=== PATIENT | female | born 1990 | race Caucasian/White ===

== ENCOUNTER 2020-04-03 09:12 | Emergency (ER) | payer BC, OTHER ==
--- OUTSIDE RECORDS SUMMARY | 2020-04-03 09:35 | XMS REPORT | Continuity of Care Document ---
:1990 Author Organization [facility] t Address [address] [place] [address] Care Team Providers Name Role Phone Singer REYES Attending Clinician Khushi PALM Attending Clinician Payers Payer Name Policy Type Policy Number Effective Date Expiration Date S ource Problems This patient has no known problems. Allergies, Adverse Reactions, Alerts Allergy Allergy Status Severity Reaction(s) Onset Inactive Treating Comm ents Source Name Type Date Date Clinician No Known DA Active [facility]17 [facility] [place] Medications This patient has no known medications. Procedures This patient has no known procedures. Encounters Start End Encounter Admission Attending Care Care Encounter Source Date/Time Date/Time Type Type Clinicians Facility Department ID 2020-04-03 2020-04-03 SLADE Long [id number] 07:30:00 08:41:00 Gumaro Pelayo [id number] [place] [id number] [place] [id number] 2019-10-27 2019-10-27 Office [place] [facility] [id number] 12:48:48 13:38:31 Visit Elyssa Pelayo [id number] [place] [id number] [facility] [id number] formerly [facility] 134 [facility] Results This patient has no known results.
--- OUTSIDE RECORDS SUMMARY | 2020-04-03 09:36 | XMS REPORT | Summary of Care ---
:1990 Author Organization [facility] - Health Address [address] [place], [place] [address] Care Team Providers Name Role Phone Yissel Leon Primary Care Provider Lashell Capone MD Consulting Physician Reason for Visit Reason Comments Chest Pain Auth/Cert Status Reason Specialty Diagnoses / Referred By Referred To Procedures Contact Contact Emergency Medicine [facility] Em ergency Dept [address] [place], [place] [id number] Fax: Encounter Details Date Type Department Care Team Description 04/03/2020 Emergency [facility]-Emergency Gumaro Augustin DO Shortness of breath (Primary Dx); Department [address] [place] [address]. [address] [address] [place], [place] [id number] Allergies No Known Allergiesdocumented as of this encounter (statuses as of 04/03/2020) Medications Medication Sig Dispensed Refills Start Date End Date Status ibuprofen 600 mg Take 1 tablet by 20 tablet 1 02/18/2019 Active tabletIndications: mouth every 6 Encounter for (six) hours as induction of labor needed for Pain (scale 4-6). vitamin w/FA Take 1 tablet by 100 tablet 3 02/18/2019 Active tabletIndications: mouth daily. Liveborn , of deras , born in hospital by vaginal delivery acetaminophen-codeine Take 1 tablet by 30 tablet 0 04/13/2019 Active (TYLENOL-CODEINE #3) mouth every 4 300-30 mg (four) hours as tabletIndications: needed for Pain Buttock pain (scale 1-3). documented as of this encounter (statuses as of 04/03/2020) Active Problems Problem Noted Date Pre-operative evaluation for tubal ligation 04/10/2019 Multiparity 09/23/2018 Urinary incontinence, unspecified type 09/23/2018 documented as of this encounter (statuses as of 04/03/2020) Resolved Problems Problem Noted Date Resolved Date Routine follow-up 03/20/2019 03/20/2019 Tubal ligation status 03/20/2019 03/20/2019 Encounter for induction of labor 02/17/2019 020 Liveborn infant, of deras , born in hospital by 02/17/2019 03/20/2019 vaginal delivery 39 weeks gestation of 02/14/2019 03/20/19 20 Obesity affecting in second trimester 08/26/2018 02/17/2019 Tubal ligation evaluation 08/26/2018 04/10/2019 High-risk in third trimester 06/29/2018 0 03/20/2019 Previous child with Down syndrome in first trimester, 201803/21/2019 antepartum Obesity (BMI 30-39.9) 06/29/2018 03/20/2019 Thrombocytopenia affecting , antepartum 06/29/2018 03/20/2019 S/P cholecystectomy 06/29/2018 02/17/2019 Nausea and vomiting during prior to 22 weeks 06/2902/14/2019 gestation Trichomonal vulvovaginitis 05/09/2014 06/29/2018 Chlamydia trachomatis infection of lower genitourinary sites 05/04/2014 06/29/2018 Encounter for routine gynecological examination 05/03/2014 06/29/2018 Overview: ICD10 Diagnosis Term Commissions Manager Utility Family planning, IUD (intrauterine device) removal 5 06/29/2018 Screening for STD (sexually transmitted disease) 05/03/2014 06/29/2018 Obesity 05/03/2014 06/29/2018 Overview: ICD10 Diagnosis Term Commissions Manager Utility Abnormal uterine bleeding 10/12/2012 05/03/2014 Tobacco use disorder 10/12/2012 06/29/2018 anemia 10/31/2010 10/12/2012 Overview: ICD10 Diagnosis Term Commissions Manager Utility Thrombocytopenia 10/31/2010 10/12/[address] 10/31/2010 10/12/2012 Status post induction of labor 10/30/2010 Overview: History of 4 hour delivery ICD10 Diagnosis Term Commissions Manager Utility Obstetrical laceration 10/30/2010 10/12/2012 Overview: periurethral Normal spontaneous vaginal delivery 10/30/201009/14 documented as of this encounter (statuses as of 04/03/2020) Immunizations Name Administration Dates Next Due Rubella 03/25/2010 TDAP 03/15/2011 TDAP (ADACEL) VACCINE 12/22/2018 12/22/2018 documented as of this encounter Social History Tobacco Use Types Packs/Day Years Used Date Former Smoker Cigarettes 0 Quit: 06/30/19 Smokeless Tobacco: Never Used Alcohol Use Drinks/Week oz/Week Comments No Sex Assigned at Date Recorded Not on file COVID-19 Exposure Response Date Recorded In the last month, have you been in contact with No / Unsure 04/03/2020 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 documented as of this encounter Last Filed Vital Signs Vital Sign Reading Time Taken Comments Blood Pressure 126/102 04/03/2020 7:31 AM SEAT COVER CUTTER Pulse 102 04/03/2020 7:31 AM SEAT COVER CUTTER Temperature 36.6 C (97.8 F) 04/03/2020 7:31 AM SEAT COVER CUTTER Respiratory Rate 28 04/03/2020 7:31 AM SEAT COVER CUTTER Oxygen Saturation 98% 04/03/2020 7:31 AM SEAT COVER CUTTER Inhaled Oxygen Concentration - - Weight 90.7 kg (200 lb) 04/03/2020 7:31 AM SEAT COVER CUTTER Height - - Body Mass Index 31.32 10/27/2019 1:24 PM CDT documented in this encounter ED Notes Keke Mosquera RN - 04/03/2020 7:29 AM CSTPatient c/o chest pain that started while sleeping. Patient uncooperative with answering questions. Patient hyperventilating. Encourage to take slow deep breaths. documented in this encounter Miscellaneous Notes ED Nurse Note - Tracey Hines RN - 04/03/2020 8:14 AM CSTRe-educated patient on why physician ordered blood work and covid swab and how those specimens are obtained. When RN attempted to obtain covid swab patient grabbed RN's arm. RN advised patient to let go of arm and that it is inappropriate to place her hands on medical staff. She then began to berate and curse staff. She refused blood work and covid swab. She is calling ride to come get her. She is alert, oriented x4 but is refusing further testing. She ambulated out of the ED with no gait disturbances. She did not sign AMA paper. D Nurse Note - Tracey Hines RN - 04/03/2020 7:40 AM CSTPhysician attempting to assess patient. She is uncooperative in answering questions. Physician explaining the importance of participating in assessment. Pt remains unreceptive and refuses to participate. documented in this encounter Plan of Treatment Date Type Specialty Care Team Description 10/28/2020 Office Visit Obstetrics & Gynecology Elyssa Puri PA-C [address] [place] [address] [phone] Name Type Priority Associated Diagnoses Order S chedule CBC WITH DIFF LAB Routine Shortness of breath ONCE fo r 1 Occurrences starting 2020 until 1 COMP. METABOLIC PANEL LAB Routine Shortness of breath ONCE for 1 Occurrences (98953) starting 2020 until 1 URINALYSIS LAB Routine Shortness of breath ONCE for 1 Occurrences starting 2020 until 1 ADC / LCC - DRUG SCREEN LAB Routine Shortness of ayden th ONCE for 1 Occurrences TRIAGE starting 2020 until 1 COVID-19 (ID NOW RAPID LAB Routine Shortness of breat h ONCE for 1 Occurrences TESTING) starting 2020 until 1 ETHANOL LAB Routine Confusion ONCE for 1 Occu rrences starting 2020 until 1 ACETAMINOPHEN LAB Routine Confusion ONCE for 1 Occ urrences starting 2020 until 1 SALICYLATE LAB Routine Confusion ONCE for 1 Occu rrences starting 2020 until 1 Health Maintenance Due Date Last Done Comments PNEUMOCOCCAL 0-64 YEARS COMBINED 07/27/1995 SERIES (1 of 3 - PCV13) INFLUENZA VACCINE (#1) 2019 Depression Screening 04/18/2020 04/18/2019 PAP SMEAR 10/26/2022 10/27/2019, 03/04/2017, 05/02/2014, Additional history exists DTaP,Tdap,and Td Vaccines (3 - Td) 12/22/2028 12/22/2018, 0 03/15/2011 documented as of this encounter Results Not on filedocumented in this encounter Visit Diagnoses Diagnosis Shortness of breath - Primary Confusion Unspecified psychosis documented in this encounter Additional Health Concerns Infection Onset Date Last Indicated Resolved Time COVID-19 Rule Out 04/03/2020 04/03/2020 documented as of this encounter Insurance Payer Benefit Plan / Subscriber ID Effective Phone Address [facility] [id number] 2018-[place] [address] [employer] HEALTH CHOICE - [place] [id number] 1 MANAGED MEDICAID [place], [place] [phone] documented as of this encounter Advance Directives Name Relationship Healthcare Agent Communication Relationship Brittany Cedric Mother Health Care Agent
[2020-04-03] MEDS ORDERED: dexAMETHasone 10 MG/ML VIAL ONE (10:13)
[2020-04-03] MEDS ORDERED: LEVALBUTEROL 1.25 MG/3 ML NEB ONE (10:13)
[2020-04-03 10:31] LABS: Absolute Lymphocytes (CBC) 2.3 K/uL (0.7-4.9); Basophils % 0.4 % (0-1.3); Hematocrit 39.7 % (36.0-45.0); Lymphocytes % 31.5 % (15.3-44.8); MPV 11.3 fL (7.6-11.3); RBC Red Blood Cell Count 4.44 M/uL (3.86-4.86)
[2020-04-03 11:33] LABS: Blood Morphology Comment NOT SEEN (NOT SEEN); Platelet Estimate ADEQ; Platelets, Giant FEW; White Blood Cell Scan OK (OK)
--- NOTE | 2020-04-03 11:40 | RAD REPORT ---
EXAM DESCRIPTION: Karen Single View04/03/2020 10:29 am CLINICAL HISTORY: Chest pain COMPARISON: 2013 FINDINGS: The lungs appear clear of acute infiltrate. The heart is normal size IMPRESSION: No acute abnormalities displayed
[2020-04-03 12:16] LABS: SARS-COV-2 RT PCR NEGATIVE (NEGATIVE)
--- NOTE | 2020-04-03 13:39 | ER ---
Nurse's Notes [facility] Name: Yolanda Steele Age: 29 yrs Sex: Female : 1990 Arrival Date: 04/03/2020 Time: 09:19 Bed 18 Private MD: Diagnosis: Acute bronchitis Presentation: 04/03 09:47 Chief complaint: Patient states: nonproductive coughing spell that started yesterday, em also reports chest pain this morning, denies fever. Coronavirus screen: cough unrelated to allergies, The client denies any previous COVID testing. Ebola Screen: Patient negative for fever greater than or equal to 101.5 degrees Fahrenheit, and additional compatible Ebola Virus Disease symptoms Patient denies exposure to infectious person. Patient denies travel to an Ebola-affected area in the 21 days before illness onset. No symptoms or risks identified at this time. Initial Sepsis Screen:. Risk Assessment: Do you want to hurt yourself or someone else? Patient reports no desire to harm self or others. Onset of symptoms was April 02, 2020. :47 Method Of Arrival: Ambulatory em :47 Acuity: AMBAR 3 em :47 Initial Sepsis Screen: Does the patient meet any 2 criteria? No. Patient's initial em sepsis screen is negative. Does the patient have a suspected source of infection? Yes: Productive cough/pneumonia. Historical: - Allergies: 10:06 No Known Allergies; em - PMHx: 09:48 GERD; em - PSHx: 09:48 Cholecystectomy; colon polyps removed; D \T\ C; em - Immunization history:: Adult Immunizations up to date. - Social history:: Smoking status: Patient denies any tobacco usage or history of. Screenin:06 Abuse screen: Denies threats or abuse. Nutritional screening: No deficits noted. em Tuberculosis screening: No symptoms or risk factors identified. Fall Risk None identified. Assessment: :47 General: Appears in no apparent distress. comfortable, Behavior is cooperative, em appropriate for age, anxious. Pain: Complains of pain in mid-sternal area Pain radiates to back Pain currently is 5 out of 10 on a pain scale. Pain began 1 day ago. Neuro: Level of Consciousness is awake, alert, obeys commands, Oriented to person, place, time, situation, Appropriate for age. Cardiovascular: Reports chest pain, Capillary refill < 3 seconds Patient's skin is warm and dry. Respiratory: Reports shortness of breath at rest cough that is non-productive, Airway is patent Respiratory effort is even, unlabored, Respiratory pattern is regular, symmetrical. GI: Patient currently denies nausea, vomiting. Derm: Skin is intact, is healthy with good turgor, Skin is pink, warm \T\ dry. Musculoskeletal: Capillary refill < 3 seconds, Range of motion: intact in all extremities. 10:30 Reassessment: Patient appears in no apparent distress at this time. Patient and/or em family updated on plan of care and expected duration. Pain level reassessed. Patient is alert, oriented x 3, equal unlabored respirations, skin warm/dry/pink. 11:53 Reassessment: Patient appears in no apparent distress at this time. Patient and/or em family updated on plan of care and expected duration. Pain level reassessed. Patient is alert, oriented x 3, equal unlabored respirations, skin warm/dry/pink. 12:10 Reassessment: Patient appears in no apparent distress at this time. Patient and/or em family updated on plan of care and expected duration. Pain level reassessed. Patient is alert, oriented x 3, equal unlabored respirations, skin warm/dry/pink. Vital Signs: 10:06 BP 112 / 73; Pulse 68; Resp 20; Temp 98.0(O); Pulse Ox 100% on R/A; Weight 94.8 kg; em Height 5 ft. 7 in. (170.18 cm); Pain 5/10; 11:03 BP 109 / 58; Pulse 70; Resp 18; Pulse Ox 98% on R/A; em 11:52 BP 100 / 55; Pulse 96; Resp 18; Pulse Ox 98% on R/A; em 13:57 BP 112 / 67; Pulse 65; Resp 16; Pulse Ox 99% on R/A; em 10:06 Body Mass Index 32.73 (94.80 kg, 170.18 cm) em ED Course: 09:19 Patient arrived in ED. mr 09:24 Cong Hernandez PA is PHCP. jmm 09:24 Michi Marcial MD is Attending Physician. jmm 09:40 Juan J Palm, KALEY is Primary Nurse. em 09:48 Triage completed. em 09:49 Arm band placed on. em 10:06 Patient has correct armband on for positive identification. Placed in gown. Bed in low em position. Call light in reach. Side rails up X2. Pulse ox on. NIBP on. 10:15 Initial lab(s) drawn, by me, sent to lab. Inserted saline lock: 20 gauge in right em antecubital area, using aseptic technique. Blood collected. Patient maintains SpO2 saturation greater than 95% on room air. 10:29 EKG done, by ED staff, reviewed by Cong POWERS. [facility] 10:30 Chest Single View XRAY In Process Unspecified. EDMS 13:53 No provider procedures requiring assistance completed. IV discontinued, intact, em bleeding controlled, No redness/swelling at site. Pressure dressing applied. Administered Medications: 10:05 Drug: Xopenex (3) 1.25 mg Route: Inhalation; em 10:30 Follow up: Response: No adverse reaction em 10:05 Drug: Decadron - Dexamethasone 10 mg Route: IVP; Site: right antecubital; em 10:30 Follow up: Response: No adverse reaction; Marked relief of symptoms em Outcome: 13:38 Discharge ordered by MD. ta 13:53 Discharged to home ambulatory. em 13:53 Condition: improved 13:53 Discharge instructions given to patient, Instructed on discharge instructions, follow up and referral plans. medication usage, Demonstrated understanding of instructions, follow-up care, medications, Prescriptions given X 2. 13:57 Patient left the ED. em Signatures: Dispatcher [employer] EDWV Cong Hernandez PA PA jmm GuzmánKrista Edgar, RN RN em Melani Kunz [facility] Corrections: (The following items were deleted from the chart) 10:07 09:48 Allergies: Methylprednisolone; em em
--- NOTE | 2020-04-03 13:39 | EDPHYS ---
Physician Documentation [facility] Name: Yolanda Steele Age: 29 yrs Sex: Female : 1990 Arrival Date: 04/03/2020 Time: 09:19 Bed 18 Private MD: ED Physician Michi Marcial HPI: 04/03 09:57 This 29 yrs old Female presents to ER via Ambulatory with complaints of Chest jmm Pain, Passed Out Prior To Arrival. 09:57 The patient or guardian reports cough. Onset: The symptoms/episode began/occurred jmm gradually. Modifying factors: The symptoms are alleviated by nothing. the symptoms are aggravated by nothing. Associated signs and symptoms: Pertinent negatives: fever. This is a 29 year old female with a history of GERD that presents to the ED with complaints of cough, shortness of breath, chest pain with cough beginning yesterday. Patient states she was being evaluated in the ED at [facility] and left after developing a nose bleed with nasal swab. . Historical: - Allergies: 10:06 No Known Allergies; em - PMHx: 09:48 GERD; em - PSHx: 09:48 Cholecystectomy; colon polyps removed; D \T\ C; em - Immunization history:: Adult Immunizations up to date. - Social history:: Smoking status: Patient denies any tobacco usage or history of. ROS: 09:57 Constitutional: Positive for body aches, chills. jmm 09:57 Respiratory: Positive for cough, shortness of breath, wheezing. 09:57 All other systems are negative. Exam: 09:57 Constitutional: This is a well developed, well nourished patient who is awake, alert, jmm and in no acute distress. Head/Face: atraumatic. Eyes: EOMI, no conjunctival erythema appreciated ENT: Moist Mucus Membranes Neck: Trachea midline, Supple Chest/axilla: Normal chest wall appearance and motion. 09:57 Abdomen/GI: Non distended, soft Back: Normal ROM Skin: General appearance color normal MS/ Extremity: Moves all extremities, no obvious deformities appreciated, no edema noted to the lower extremities Neuro: Awake and alert, normal gait Psych: Behavior is normal, Mood is normal, Patient is cooperative and pleasant 09:57 Cardiovascular: Rate: normal, Rhythm: regular. 09:57 Respiratory: the patient does not display signs of respiratory distress, Respirations: normal, Breath sounds: wheezing: that is moderate, is scattered. Vital Signs: 10:06 BP 112 / 73; Pulse 68; Resp 20; Temp 98.0(O); Pulse Ox 100% on R/A; Weight 94.8 kg; em Height 5 ft. 7 in. (170.18 cm); Pain 5/10; 11:03 BP 109 / 58; Pulse 70; Resp 18; Pulse Ox 98% on R/A; em 11:52 BP 100 / 55; Pulse 96; Resp 18; Pulse Ox 98% on R/A; em 13:57 BP 112 / 67; Pulse 65; Resp 16; Pulse Ox 99% on R/A; em 10:06 Body Mass Index 32.73 (94.80 kg, 170.18 cm) em MDM: 09:52 Patient medically screened. [facility] 13:36 Data reviewed: vital signs, nurses notes. Counseling: I had a detailed discussion with cely the patient and/or guardian regarding: the historical points, exam findings, and any diagnostic results supporting the discharge/admit diagnosis, lab results, radiology results, the need for outpatient follow up, to return to the emergency department if symptoms worsen or persist or if there are any questions or concerns that arise at home. ED course: Patient is alert and non toxic in appearance in the ED. No signs of resp distress. Patient is advised to follow up with pcp and otherwise given strict return precautions. Patient understood and agrees with the plan of care.. 04/03 09:54 Order name: CBC with Diff; Complete Time: 11:39 [facility] 04/03 09:54 Order name: Troponin I; Complete Time: 10:57 [facility] 04/03 09:54 Order name: D-Dimer; Complete Time: 11:10 [facility] 04/03 10:34 Order name: CBC Smear Scan; Complete Time: 11:39 EDMS 04/03 09:54 Order name: EKG - Nurse/Tech; Complete Time: 10:27 [facility] 04/03 09:54 Order name: Chest Single View XRAY; Complete Time: 11:43 [facility] 04/03 09:54 Order name: Saline Lock; Complete Time: 10:27 [facility] 04/03 12:16 Order name: COVID-19/FLU A+B; Complete Time: 12:23 EDMS Administered Medications: 10:05 Drug: Xopenex (3) 1.25 mg Route: Inhalation; em 10:30 Follow up: Response: No adverse reaction em 10:05 Drug: Decadron - Dexamethasone 10 mg Route: IVP; Site: right antecubital; em 10:30 Follow up: Response: No adverse reaction; Marked relief of symptoms em Disposition: 04/03/20 13:38 Discharged to Home. Impression: Acute bronchitis. - Condition is Stable. - Discharge Instructions: Acute Bronchitis, Adult. - Prescriptions for Albuterol Sulfate 90 mcg/actuation - inhale 1-2 puff by INHALATION route every 4-6 hours; 1 Inhaler. Prednisone 20 mg Oral Tablet - take 3 tablet by ORAL route once daily for 5 days; 15 tablet. - Medication Reconciliation Form, Thank You Letter, Antibiotic Education, Prescription Opioid Use form. - Follow up: Private Physician; When: 2 - 3 days; Reason: Recheck today's complaints, Continuance of care, Re-evaluation by your physician. Addendum: 04/06/2020 07:02 Co-signature as Attending Physician, Michi Marcial MD. r n Signatures: Dispatcher [employer] EDNE Cong Hernandez PA PA jmm Munoz, Edgar, RN RN Michi Marcial MD MD internet marketer: (The following items were deleted from the chart) 04/03 10:07 09:48 Allergies: Methylprednisolone; em em 11:25 09:55 CORONAVIRUS+MR.LAB.BRZ ordered. EDNE EDMS 11:25 09:55 Influenza Screen (A \T\ B)+BA.LAB.BRZ ordered. [facility] EDNE 13:57 13:38 04/03/2020 13:38 Discharged to Home. Impression: Acute bronchitis. Condition is em Stable. Forms are Medication Reconciliation Form, Thank You Letter, Antibiotic Education, Prescription Opioid Use. Follow up: Private Physician; When: 2 - 3 days; Reason: Recheck today's complaints, Continuance of care, Re-evaluation by your physician. cely
[2020-04-03 14:02] VITALS: TEMP 98
[2020-04-03 14:06] VITALS: BP 112/67; O2SAT 99
== END 2020-04-03 13:57 | disposition home or self-care (01) ==
LOC: ER 09:12
DX: J40 Bronchitis, not specified as acute or chronic (principal); Z20.822 Contact with and (suspected) exposure to COVID-19
CPT/HCPCS: 0240U; 36415; 71045; 84484; 85025; 85379; 93005; 96374; 99285; J1100

== ENCOUNTER 2021-08-12 08:26 | Emergency (ER) | payer OTHER ==
--- OUTSIDE RECORDS SUMMARY | 2021-08-12 08:29 | XMS REPORT | Continuity of Care Document ---
:1990 Author Organization [facility] t Address [address] [place] [address] Care Team Providers Name Role Phone KHUSHI Attending Clinician Unavailable Singer REYES Attending Clinician Khushi PALM Attending Clinician Payers Payer Name Policy Type Policy Number Effective Date Expiration Date [facility] [id number] 2018 [facility] MEDICAID 00:00:00 Problems This patient has no known problems. Allergies, Adverse Reactions, Alerts Allergy Allergy Status Severity Reaction(s) Onset Inactive Treating Comm ents Source Name Type Date Date Clinician No Known DA Active U [facility] [place] NO KNOWN Drug Active Univers ALLERGIE Class ity of [facility] Medications This patient has no known medications. Procedures This patient has no known procedures. Encounters Start End Encounter Admission Attending Care Care Encounter Source Date/Time Date/Time Type Type Clinicians Facility Department ID 2021-01-[address] [facility] [id number] [facility] 2020-10-29 Outpatient R KHUSHI [facility] [id number] 3P-20 Univers 08:30:00 08:30:00 ELYSSA [id number] [facility] 2020-10-29 2020-10-29 Outpatient R KHUSHI [facility] [id number] Univers 08:30:00 08:30:00 ELYSSA [facility] 2020-10-28 2020-10-28 Outpatient KHUSHI [facility] [id number] 3P-20 Univers 08:30:00 08:30:00 ELYSSA [id number] [facility] 2020-10-28 2020-10-28 Outpatient R KHUSHI [facility] [id number] Univers 08:30:00 08:30:00 ELYSSA [facility] 2020-07-09 2020-07-09 Outpatient KHUSHI [facility] [id number] 3P-20 Univers 08:30:00 08:30:00 ELYSSA [id number] [facility] 2020-07-09 2020-07-09 Outpatient R KHUSHI [facility] [id number] Univers 08:30:00 08:30:00 [facility] 2020-04-03 2020-04-03 [facility] [id number] 07:30:00 08:41:00 Gumaro Pelayo [id number] [place] [id number] [place] [id number] 2019-10-27 2019-10-27 [facility] [id number] 12:48:48 13:38:31 Visit Elyssa Pelayo [id number] [place] [id number] [facility] [phone] [address] 2019-10-27 2019-10-27 Outpatient R KHUSHI [facility] [id number] Univers 13:00:00 13:00:00 ELYSSA [facility] 2019-10-27 2019-10-27 Outpatient R KHUSHI [facility] [id number] 3P-20 Univers 13:00:00 13:00:00 ELYSSA [id number] [facility] Results This patient has no known results.
--- NOTE | 2021-08-12 10:00 | ER ---
Nurse's Notes [facility] Name: Yolanda Steele Age: 31 yrs Sex: Female : 1990 Arrival Date: 08/12/2021 Time: 08:35 Bed 11 Private MD: Osmar Holder S Diagnosis: Influenza due to identified novel influenza A virus Presentation: 08/12 08:47 Chief complaint: Patient states: throat hurts, fever, cough, aches, fever X 3 days, iw took home COVId test and was negative. Coronavirus screen: Client presents with at least one sign or symptom that may indicate coronavirus-19. Ebola Screen: Patient negative for fever greater than or equal to 101.5 degrees Fahrenheit, and additional compatible Ebola Virus Disease symptoms Patient denies exposure to infectious person. Patient denies travel to an Ebola-affected area in the 21 days before illness onset. No symptoms or risks identified at this time. Initial Sepsis Screen: Does the patient meet any 2 criteria? No. Patient's initial sepsis screen is negative. Does the patient have a suspected source of infection? No. Patient's initial sepsis screen is negative. Risk Assessment: Do you want to hurt yourself or someone else? Patient reports no desire to harm self or others. Onset of symptoms was August 09, 2021. 08:47 Method Of Arrival: Ambulatory iw 08:47 Acuity: AMBAR 4 Historical: - Allergies: 08:48 No Known Allergies; iw - Home Meds: 08:48 None [Active]; iw - PMHx: 08:48 GERD; iw Vital Signs: 08:57 BP 101 / 68; Pulse 88; Resp 16; Temp 98.1; Pulse Ox 95% on R/A; iw ED Course: 08:35 Patient arrived in ED. as 08:36 Osmar Holder MD is Private Physician. as 08:38 [facility] 7 08:38 Leoncio Stokes DO is Attending Physician. [facility] 08:47 Triage completed. iw 08:48 Arm band placed on. iw 09:02 Flu Sent. [facility] 09:30 [place] Leon, RN is Primary Nurse. iw Administered Medications: No medications were administered Outcome: 10:00 Discharge ordered by . [facility] 10:30 Patient left the ED. iw Signatures: Serina Kunz Irene, RN RN iw Melani Kunz mh5 Eufemia Connelly FNP JEWEL OLIVING MACHINE OPERATOR jh7 Corrections: (The following items were deleted from the chart) 09:00 08:57 Pulse 88bpm; Resp 16bpm; Temp 98.1F; iw iw
--- NOTE | 2021-08-12 10:00 | EDPHYS ---
Physician Documentation [facility] Name: Yolanda Steele Age: 31 yrs Sex: Female : 1990 Arrival Date: 08/12/2021 Time: 08:35 Bed 11 Private MD: Osmar Holder S ED Physician Leoncio Stokes HPI: 08/12 09:33 This 31 yrs old Female presents to ER via Ambulatory with complaints of Flu Symptoms. 7 09:33 Onset: The symptoms/episode began/occurred 4 day(s) ago. Associated signs and symptoms: jh7 Pertinent positives: cough, fever, headache, sore throat, wheezing, Pertinent negatives: abdominal pain, chest pain. Patient presents for flulike symptoms since Zachary evening. Patient states she was exposed to the flu. She also reports that she just took a home COVID test and that it was negative.. Historical: - Allergies: 08:48 No Known Allergies; iw - Home Meds: 08:48 None [Active]; iw - PMHx: 08:48 GERD; iw ROS: 09:33 Eyes: Negative for injury, pain, redness, and discharge, Cardiovascular: Negative for jh7 chest pain, palpitations, and edema, Back: Negative for injury and pain, Skin: Negative for injury, rash, and discoloration, Neuro: Negative for headache, weakness, numbness, tingling, and seizure. 09:33 Constitutional: Positive for body aches, fever, Negative for poor PO intake. 09:33 ENT: Positive for nasal discharge, sore throat. 09:33 Respiratory: Positive for cough, wheezing, Negative for shortness of breath. 09:33 Abdomen/GI: Positive for diarrhea, Negative for abdominal pain, nausea and vomiting. Exam: 09:33 Constitutional: This is a well developed, well nourished patient who is awake, alert, jh7 and in no acute distress. Neck: Trachea midline, no thyromegaly or masses palpated, and no cervical lymphadenopathy. Supple, full range of motion without nuchal rigidity, or vertebral point tenderness. Cardiovascular: Regular rate and rhythm with a normal S1 and S2. No gallops, murmurs, or rubs. Normal PMI, no JVD. No pulse deficits. Abdomen/GI: Soft, non-tender, with normal bowel sounds. No distension or tympany. No guarding or rebound. No evidence of tenderness throughout. Back: No spinal tenderness. No costovertebral tenderness. Full range of motion. Skin: Warm, dry with normal turgor. Normal color with no rashes, no lesions, and no evidence of cellulitis. Neuro: Awake and alert, GCS 15, oriented to person, place, time, and situation. Normal gait. 09:33 ENT: Nose: nasal drainage, and is seen coming from both nares, that is clear, post nasal drainage. 09:33 Respiratory: the patient does not display signs of respiratory distress, Respirations: normal, Breath sounds: wheezing: that is mild, is heard diffusely. Vital Signs: 08:57 BP 101 / 68; Pulse 88; Resp 16; Temp 98.1; Pulse Ox 95% on R/A; iw MDM: 09:10 Patient medically screened. [facility] 10:00 Differential diagnosis: viral Infection. Data reviewed: vital signs, nurses notes. Data [facility] interpreted: Pulse oximetry: is 95 %. Interpretation: normal. Counseling: I had a detailed discussion with the patient and/or guardian regarding: the historical points, exam findings, and any diagnostic results supporting the discharge/admit diagnosis, to return to the emergency department if symptoms worsen or persist or if there are any questions or concerns that arise at home. ED course: Patient was diagnosed with the flu. She was prescribed medication for cough and an inhaler to use as needed for shortness of breath/wheezing. She was advised to return to the ER if she developed any new concerning symptoms.. 08/12 08:54 Order name: Flu; Complete Time: 09:59 [facility] Administered Medications: No medications were administered Disposition: 21:59 Co-signature as Attending Physician, Leoncio Stokes DO I was immediately available on-site ms3 in the Emergency Department for consultation in the care of the patient. . Disposition Summary: 08/12/21 10:00 Discharge Ordered Location: Home [facility] Problem: new [facility] Symptoms: are unchanged [facility] Condition: Stable [facility] Diagnosis - Influenza due to identified novel influenza A virus [facility] Followup: [facility] - With: Private Physician - When: 2 - 3 days - Reason: Recheck today's complaints Discharge Instructions: - Discharge Summary Sheet [facility] Forms: - Medication Reconciliation Form [facility] - Thank You Letter [facility] - Antibiotic Education jh7 - Prescription Opioid Use 7 Prescriptions: - ProAir HFA 90 mcg/actuation Inhalation HFA aerosol inhaler - inhale 2 puff by INHALATION route every 4-6 hours; 1 Inhaler; Refills: 0, [facility] Product Selection Permitted - xcectrtyzreaegq-zligtntld-DC 2-30-10 mg/5 mL Oral syrup - take 10 milliliter by ORAL route every 4 hours As needed; 240 milliliter; [facility] Refills: 0, Product Selection Permitted Signatures: Dispatcher [employer] [place] Rojas, KALEY RN Leoncio Schuler, DO ms3 Eufemia Connelly, EGG CANDLER EGG CANDLER [facility]
[2021-08-12 10:46] VITALS: BP 101/68; TEMP 98.1; O2SAT 95
== END 2021-08-12 10:30 | disposition home or self-care (01) ==
LOC: ER 08:26
DX: J10.1 Influenza due to other identified influenza virus with other respiratory manifestations (principal)
CPT/HCPCS: 87804; 99282

== ENCOUNTER 2021-10-06 13:09 | Emergency (ER) | payer OTHER ==
--- OUTSIDE RECORDS SUMMARY | 2021-10-06 13:12 | XMS REPORT | Continuity of Care Document ---
:1990 Author Organization [facility] t Address [address] [place] [address] Care Team Providers Name Role Phone KHUSHI Attending Clinician Unavailable Singer REYES Attending Clinician Khushi PALM Attending Clinician Payers Payer Name Policy Type Policy Number Effective Date Expiration Date [facility] [id number] 2018 [facility] MEDICAID 00:00:00 Problems This patient has no known problems. Allergies, Adverse Reactions, Alerts Allergy Allergy Status Severity Reaction(s) Onset Inactive Treating Comm ents Source Name Type Date Date Clinician No Known DA Active U [facility] 11[facility] [place] NO KNOWN Drug Active Univers ALLERGIE Class ity of [facility] Medications This patient has no known medications. Procedures This patient has no known procedures. Encounters Start End Encounter Admission Attending Care Care Encounter Source Date/Time Date/Time Type Type Clinicians Facility Department ID 2021-01-11 Emergency [facility] [id number] [facility]-10[facility]29 Outpatient R KHUSHI [facility] [id number] 3P-20 Univers 08:30:00 08:30:00 ELYSSA [id number] [facility] 2020-10-29 2020-10-29 Outpatient R KHUSHI [facility] [id number] Univers 08:30:00 08:30:00 ELYSSA [facility] 2020-10-28 2020-10-28 Outpatient KHUSHI [facility] [id number] 3P-20 Univers 08:30:00 08:30:00 ELYSSA [id number] [facility] 2020-10-28 2020-10-28 Outpatient R KHUSHI [facility] [id number] Univers 08:30:00 08:30:00 ELYSSA [facility] 2020-07-09 2020-07-09 Outpatient KHUSHI [facility] [id number] 3P-20 Univers 08:30:00 08:30:00 ELYSSA [id number] [facility] 2020-07-09 2020-07-09 Outpatient R KHUSHI [facility] [id number] Univers 08:30:00 08:30:00 [facility] 2020-04-03 2020-04-03 [facility] [id number] 07:30:00 08:41:00 Gumaro Pelayo [id number] [place] [id number] [place] [id number] 2019-10-27 2019-10-27 Office [facility] [id number] 12:48:48 13:38:31 Visit Elyssa Pelayo [id number] [place] [id number] [facility] [id number] [address] 2019-10-27 2019-10-27 Outpatient R KHUSHI [facility] [id number] Univers 13:00:00 13:00:00 ELYSSA [facility] 2019-10-27 2019-10-27 Outpatient R KHUSHI [facility] [id number] 3P-20 Univers 13:00:00 13:00:00 ELYSSA [id number] [facility] Results This patient has no known results.
[2021-10-06 19:05] LABS: Absolute Lymphocytes (CBC) 0.5 K/uL (0.7-4.9); Hematocrit 37.1 % (36.0-45.0); Lymphocytes % 13.7 % (15.3-44.8); MCV 88.1 fL (80-100); MPV 11.4 fL (7.6-11.3); RBC Red Blood Cell Count 4.21 M/uL (3.86-4.86)
[2021-10-06 19:08] LABS: Protime INR 1.22
[2021-10-06 19:15] LABS: Potassium 3.1 mmol/L (3.5-5.1)
[2021-10-06 19:21] LABS: ALT/SGPT 30 U/L (12-78); AST/SGOT 12 U/L (15-37); Albumin 3.5 g/dL (3.4-5.0); Alkaline Phosphatase 60 U/L (45-117); Bilirubin Total 0.2 mg/dL (0.2-1.0); Creatine Phosphokinase 59 U/L (26-192); Lipase 131 U/L (73-393); Magnesium 1.8 mg/dL (1.8-2.4); Protein, Total 7.1 g/dL (6.4-8.2)
[2021-10-06] MEDS ORDERED: DIPHENHYDRAMINE 50 MG/ML VIAL ONE (19:33)
[2021-10-06] MEDS ORDERED: METOCLOPRAMIDE 10 MG/2mL INJ ONE (19:33)
[2021-10-06] MEDS ORDERED: KETOROLAC 30 MG/ML INJ ONE (19:34)
[2021-10-06] MEDS ORDERED: NA CHLORIDE 0.9% 1,000 ML ONE ×2 (19:34→21:36)
[2021-10-06 19:39] LABS: Bilirubin Direct < 0.1 mg/dL (0-0.2); CKMB Creatine Kinase MB < 1.0 ng/mL (1.0-3.6)
[2021-10-06 20:18] LABS: Urine Blood Trace-intact (Negative); Urine Glucose Negative (Negative); Urine Protein Negative (Negative)
[2021-10-06] MEDS ORDERED: POTASSIUM CL SA 10 MEQ TAB PO ONE (21:04)
[2021-10-06] MEDS ORDERED: MECLIZINE HCL 12.5 MG TAB ONE (21:35)
--- NOTE | 2021-10-06 23:11 | ER ---
Nurse's Notes [facility] Name: Yolanda Steele Age: 31 yrs Sex: Female : 1990 Arrival Date: 10/06/2021 Time: 13:11 Bed 11 Private MD: Diagnosis: Syncope Near;Viral infection, unspecified Presentation: 10/06 13:33 Chief complaint: Patient states: she started having pain all over her body in all of ap3 her joints this morning, fatigue and a headache. patient states she has been around someone who is sick. Coronavirus screen: Client presents with at least one sign or symptom that may indicate coronavirus-19. Ebola Screen: No symptoms or risks identified at this time. Initial Sepsis Screen: Does the patient meet any 2 criteria? HR > 90 bpm. Does the patient have a suspected source of infection? No. Patient's initial sepsis screen is negative. Risk Assessment: Do you want to hurt yourself or someone else? Patient reports no desire to harm self or others. Onset of symptoms was October 06, 2021 at 10:00. 13:33 Method Of Arrival: Wheelchair ap3 13:35 Acuity: AMBAR 4 ap3 Triage Assessment: 13:35 General: Appears uncomfortable, Behavior is calm, cooperative. General: Reports chills ap3 for feeling ill for fatigue for. Pain: Complains of pain in generalized body aches. Neuro: Level of Consciousness is awake, alert, obeys commands, Oriented to person, place, time, situation. Cardiovascular: Patient's skin is warm and dry. Respiratory: Reports cough that is Airway is patent Respiratory effort is even, unlabored. 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 - Social history:: Smoking status: Patient reports the use of cigarette tobacco products, smokes one-half pack cigarettes per day. Screenin:35 Abuse screen: Denies threats or abuse. Nutritional screening: No deficits noted. ap3 Tuberculosis screening: No symptoms or risk factors identified. 19:35 Fall Risk No fall in past 12 months (0 pts). No secondary diagnosis (0 pts). IV access ll3 (20 points). Ambulatory Aid- None/Bed Rest/Nurse Assist (0 pts). Gait- Normal/Bed Rest/Wheelchair (0 pts) Mental Status- Oriented to own ability (0 pts). Total Lester Fall Scale indicates No Risk (0-24 pts). Assessment: 16:00 Reassessment: Called from hong, unable to locate. jl7 17:00 Reassessment: Called from hong, unable to locate. jl 19:35 General: Appears uncomfortable, Behavior is calm, cooperative. Pain: Complains of pain ll3 in All over Pain currently is 8 out of 10 on a pain scale. Pain began This morning. Neuro: Level of Consciousness is awake, alert, obeys commands, Oriented to person, place, time, situation, Reports dizziness, headache. Respiratory: Respiratory effort is even, unlabored, Respiratory pattern is regular, symmetrical. GI: Patient currently denies nausea, vomiting. Derm: Skin is pink, warm \\T\\ dry. 21:33 Reassessment: No changes from previously documented assessment. Patient and/or family ll3 updated on plan of care and expected duration. Pain level reassessed. Patient is alert, oriented x 3, equal unlabored respirations, skin warm/dry/pink. 22:30 Reassessment: No changes from previously documented assessment. Patient and/or family ll3 updated on plan of care and expected duration. Pain level reassessed. Patient is alert, oriented x 3, equal unlabored respirations, skin warm/dry/pink. 23:58 Reassessment: No changes from previously documented assessment. Patient and/or family ll3 updated on plan of care and expected duration. Pain level reassessed. Patient is alert, oriented x 3, equal unlabored respirations, skin warm/dry/pink. Vital Signs: 13:33 Pulse 111; Resp 18; Temp 98.9; Pulse Ox 100% ; Weight 95.25 kg; Height 5 ft. 7 in. ap3 (170.18 cm); Pain 8/10; 13:35 BP 109 / 68; ap3 21:33 BP 94 / 68; Pulse 76; Resp 16; Pulse Ox 100% on R/A; ll3 22:30 BP 96 / 72; Pulse 72; Resp 16; Pulse Ox 99% on R/A; ll3 23:58 BP 99 / 66; Pulse 68; Resp 16; Pulse Ox 100% on R/A; ll3 13:33 Body Mass Index 32.89 (95.25 kg, 170.18 cm) ap3 ED Course: 13:11 Patient arrived in ED. rg4 13:35 Triage completed. ap3 13:36 Arm band placed on left wrist. ap3 14:00 Sherron Kimbrough FNP-C is PHCP. kb 14:00 Saji Collins MD is Attending Physician. kb 17:24 Saji Collins MD is Attending Physician. collins 17:58 Sherron Kimbrough FNP-C is PHCP. kb 18:47 Inserted saline lock: 22 gauge in left antecubital area, using aseptic technique. Blood zm collected. 18:48 CPK Sent. zm 18:48 Ckmb Sent. zm 18:48 Hepatic Function Sent. zm 18:48 Lipase Sent. zm 18:48 Magnesium Sent. zm 18:48 Protime (+inr) Sent. zm 18:48 Ptt, Activated Sent. zm 18:48 [place] Screen Profile Sent. zm 18:48 Basic Metabolic Panel Sent. zm 18:48 CBC with Diff Sent. zm 19:31 COVID-19 SARS RT PCR (Document "Date of Onset" if Symptomatic) Sent. zm 19:34 Michelle Ramirez, RN is Primary Nurse. ll3 19:35 Patient has correct armband on for positive identification. Bed in low position. Call 3 light in reach. Side rails up X 1. 10/07 00:19 No apparent distress. bh1 00:19 No provider procedures requiring assistance completed. IV discontinued, intact, bh1 bleeding controlled, No redness/swelling at site. Administered Medications: 10/06 19:35 Drug: NS 0.9% 1000 ml Route: IV; Rate: 1000 ml; Site: left antecubital; ll3 21:32 Follow up: Response: No adverse reaction; IV Status: Completed infusion; IV Intake: ll3 1000ml 19:35 Drug: Reglan (metoCLOPramide) 10 mg Route: IVP; Site: left antecubital; 3 21:32 Follow up: Response: No adverse reaction 3 19:35 Drug: Ketorolac 15 mg Route: IVP; Site: left antecubital; 3 21:32 Follow up: Response: No adverse reaction 3 19:35 Drug: Benadryl (diphenhydrAMINE) 12.5 mg Route: IVP; Site: left antecubital; 3 21:32 Follow up: Response: No adverse reaction 3 21:03 Drug: Potassium Chloride 40 mEq Route: PO; 3 21:32 Follow up: Response: No adverse reaction 3 21:31 Drug: Meclizine 25 mg Route: PO; 3 10/07 00:20 Follow up: Response: No adverse reaction [facility] 10/06 21:31 Drug: NS 0.9% 1000 ml Route: IV; Rate: 1 bolus; Site: left antecubital; 3 10/07 00:20 Follow up: IV Status: Completed infusion; IV Intake: 1000ml [facility] Medication: 00:19 VIS not applicable for this client. 1 Intake: 10/06 21:32 IV: 1000ml; Total: 1000ml. 3 10/07 00:20 IV: 1000ml; Total: 2000ml. 1 Outcome: 10/06 23:10 Discharge ordered by . yamini 10/07 00:19 Discharged to home ambulatory. 1 Condition: good Discharge instructions given to patient, Instructed on discharge instructions, follow up and referral plans. Demonstrated understanding of instructions, follow-up care. 00:20 Patient left the ED. 1 Signatures: Sherron Kimbrough, MARINE PLUMBER-C MARINE PLUMBER-Ckb Saji Collins MD MD cha Garcia, Rubi rg4 Agnes Vidal RN RN jl7 Aliya Aaron RN RN tasia3 Michelle Ramirez RN RN ll3 Ginette Kunz Barbara, RN RN 1
--- NOTE | 2021-10-06 23:11 | EDPHYS ---
Physician Documentation [facility] Name: Yolanda Steele Age: 31 yrs Sex: Female : 1990 Arrival Date: 10/06/2021 Time: 13:11 Bed 11 Private MD: HAFSA Physician Saji Collins HPI: 10/06 23:07 This 31 yrs old Female presents to ER via Wheelchair with complaints of Pain All Over. kb 23:07 The patient or guardian reports flu symptoms, myalgias. Onset: The symptoms/episode kb began/occurred this morning. Severity of symptoms: At their worst the symptoms were moderate, in the emergency department the symptoms are unchanged. Modifying factors: The symptoms are alleviated by nothing, the symptoms are aggravated by nothing. Associated signs and symptoms: The patient has no apparent associated signs or symptoms. The patient has not experienced similar symptoms in the past. The patient has not recently seen a physician. Patient reports body aches, fatigue, headache, back pain that started this morning at 10 AM. States she lives with her sister who currently has COVID.. 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 - Social history:: Smoking status: Patient reports the use of cigarette tobacco products, smokes one-half pack cigarettes per day. ROS: 23:07 Respiratory: Negative for shortness of breath, cough, wheezing, and pleuritic chest kb pain. 23:07 Constitutional: Positive for body aches, chills, fatigue, malaise. 23:07 Neuro: Positive for headache, near syncope. 23:07 All other systems are negative. Exam: 19:00 Constitutional: This is a well developed, well nourished patient who is awake, alert, kb and in no acute distress. Head/Face: Normocephalic, atraumatic. ENT: Moist Mucous membranes Cardiovascular: Regular rate and rhythm with a normal S1 and S2. No gallops, murmurs, or rubs. No pulse deficits. Respiratory: Respirations even and unlabored. No increased work of breathing. Talking in full sentences Abdomen/GI: Soft, non-tender. No distention Skin: Warm, dry with normal turgor. Normal color. MS/ Extremity: Pulses equal, no cyanosis. Neurovascular intact. Full, normal range of motion. Neuro: Awake and alert, GCS 15, oriented to person, place, time, and situation. Moves all extremities. Normal gait. Psych: Awake, alert, with orientation to person, place and time. Behavior, mood, and affect are within normal limits. 19:00 ECG was reviewed by the Attending Physician. Vital Signs: 13:33 Pulse 111; Resp 18; Temp 98.9; Pulse Ox 100% ; Weight 95.25 kg; Height 5 ft. 7 in. ap3 (170.18 cm); Pain 8/10; 13:35 BP 109 / 68; ap3 21:33 BP 94 / 68; Pulse 76; Resp 16; Pulse Ox 100% on R/A; ll3 22:30 BP 96 / 72; Pulse 72; Resp 16; Pulse Ox 99% on R/A; ll3 23:58 BP 99 / 66; Pulse 68; Resp 16; Pulse Ox 100% on R/A; ll3 13:33 Body Mass Index 32.89 (95.25 kg, 170.18 cm) ap3 MDM: 17:24 Patient medically screened. [facility] 22:08 Data reviewed: vital signs, nurses notes. Data interpreted: Pulse oximetry: on room air kb is 100 %. Interpretation: normal. 23:08 Counseling: I had a detailed discussion with the patient and/or guardian regarding: the kb historical points, exam findings, and any diagnostic results supporting the discharge/admit diagnosis, lab results, the need for outpatient follow up, a family practitioner, to return to the emergency department if symptoms worsen or persist or if there are any questions or concerns that arise at home. ED course: Patient had episode of near syncope when ambulating to room 11 from triage. Patient was assisted to stretcher. Reported dizziness at the time. Patient reports improved dizziness after meclizine and IV fluids.. 10/06 13:36 Order name: COVID-19 SARS RT PCR (Document "Date of Onset" if Symptomatic); Complete ap3 Time: 14:48 10/06 13:36 Order name: Flu; Complete Time: 14:27 ap3 10/06 18:02 Order name: CBC with Diff; Complete Time: 19:31 kb 10/06 18:02 Order name: Basic Metabolic Panel; Complete Time: 19:18 kb 10/06 18:02 Order name: [place] Screen Profile; Complete Time: 19:45 kb 10/06 18:10 Order name: CPK; Complete Time: 19:45 kb 10/06 18:10 Order name: Ckmb; Complete Time: 19:45 kb 10/06 18:10 Order name: Hepatic Function; Complete Time: 19:45 kb 10/06 18:10 Order name: Lipase; Complete Time: 19:45 kb 10/06 18:10 Order name: Magnesium; Complete Time: 19:45 kb 10/06 18:10 Order name: Protime (+inr); Complete Time: 19:10 kb 10/06 18:10 Order name: Ptt, Activated; Complete Time: 19:10 kb 10/06 19:18 Order name: COVID-19 SARS RT PCR (Document "Date of Onset" if Symptomatic) kb 10/06 20:19 Order name: Urine Dipstick-Ancillary; Complete Time: 20:33 EDMS 10/06 18:10 Order name: EKG; Complete Time: 18:11 kb 10/06 18:10 Order name: Cardiac monitoring; Complete Time: 18:49 kb 10/06 18:10 Order name: EKG - Nurse/Tech; Complete Time: 19:19 kb 10/06 18:10 Order name: IV Saline Lock; Complete Time: 18:48 kb 10/06 18:10 Order name: Labs collected and sent; Complete Time: 18:48 kb 10/06 18:10 Order name: NPO; Complete Time: 18:48 kb 10/06 18:10 Order name: O2 Per Protocol; Complete Time: 19:35 kb 10/06 20:19 Order name: Urine --Ancillary (enter results); Complete Time: 21:11 mw2 10/06 22:33 Order name: SARS-COV-2 RT PCR; Complete Time: 23:32 EDMS 10/06 18:10 Order name: O2 Sat Monitoring; Complete Time: 19:35 kb 10/06 18:10 Order name: Urine Dipstick-Ancillary (obtain specimen); Complete Time: 20:15 kb EC:00 Rate is 99 beats/min. Rhythm is regular. QRS [place] is Normal. NM interval is normal at kb 156 msec. QRS interval is normal at 102 msec. QT interval is normal at 462 msec. Administered Medications: 19:35 Drug: NS 0.9% 1000 ml Route: IV; Rate: 1000 ml; Site: left antecubital; ll3 21:32 Follow up: Response: No adverse reaction; IV Status: Completed infusion; IV Intake: ll3 1000ml 19:35 Drug: Reglan (metoCLOPramide) 10 mg Route: IVP; Site: left antecubital; ll3 21:32 Follow up: Response: No adverse reaction 3 19:35 Drug: Ketorolac 15 mg Route: IVP; Site: left antecubital; ll3 21:32 Follow up: Response: No adverse reaction 3 19:35 Drug: Benadryl (diphenhydrAMINE) 12.5 mg Route: IVP; Site: left antecubital; ll3 21:32 Follow up: Response: No adverse reaction 3 21:03 Drug: Potassium Chloride 40 mEq Route: PO; ll3 21:32 Follow up: Response: No adverse reaction 3 21:31 Drug: Meclizine 25 mg Route: PO; 3 10/07 00:20 Follow up: Response: No adverse reaction [facility] 10/06 21:31 Drug: NS 0.9% 1000 ml Route: IV; Rate: 1 bolus; Site: left antecubital; 3 10/07 00:20 Follow up: IV Status: Completed infusion; IV Intake: 1000ml [facility] Disposition Summary: 10/06/21 23:10 Discharge Ordered Location: Home kb Condition: Stable kb Diagnosis - Syncope Near kb - Viral infection, unspecified kb Followup: kb - With: Emergency Department - When: As needed - Reason: Worsening of condition Followup: kb - With: Private Physician - When: 2 - 3 days - Reason: Recheck today's complaints, Continuance of care, Re-evaluation by your physician Discharge Instructions: - Discharge Summary Sheet kb - Near-Syncope, [id number] kb - Viral Illness, Adult kb Forms: - Medication Reconciliation Form kb - Thank You Letter kb - Antibiotic Education kb - Prescription Opioid Use kb Signatures: Dispatcher [employer] Sherron Horn, SHWETA MOORE-Saji Canales MD MD cha Prokisch, Amanda RN RN ap3 Michelle Ramirez RN RN ll3 Velma Torres RN RN bh1
[2021-10-07 00:42] VITALS: TEMP 98.9
[2021-10-07 00:49] VITALS: BP 99/66; O2SAT 100
--- NOTE | 2021-10-07 12:38 | EKG ---
Test Date: 2021-10-06 Test Time: 18:14:42 Reel Slitter: KELLY MEASUREMENT RESULTS: Intervals: Rate: 99 WI: 156 QRSD: 102 QT: 360 QTc: 462 [place]: P: 67 WI: 156 QRS: 66 T: 59 INTERPRETIVE STATEMENTS: Normal sinus rhythm Normal ECG Compared to ECG 04/03/2020 10:21:17 Incomplete right bundle-branch block no longer present Electronically Signed On 10-07-21 12:36:49 CDT by Ronal Dhaliwal
== END 2021-10-07 00:20 | disposition home or self-care (01) ==
LOC: ER 13:09
DX: B34.9 Viral infection, unspecified (principal); Z20.822 Contact with and (suspected) exposure to COVID-19; K21.9 Gastro-esophageal reflux disease without esophagitis; F17.210 Nicotine dependence, cigarettes, uncomplicated
CPT/HCPCS: 96361; 93005; 85025; 80048; 36415; 83735; 82550; 86308; 81025; 85610; 80076; 85730; 81003; 82553; 83690; 87804 ×2; 96375; 96374; 99284; U0003 ×2; J2765; J1200; J8597; J7030 ×2

== ENCOUNTER 2022-01-04 19:42 | Emergency (ER) | payer OTHER ==
--- OUTSIDE RECORDS SUMMARY | 2022-01-04 19:46 | XMS REPORT | Continuity of Care Document ---
:1990 Author Organization [facility] t Address [address] [place] [address] Care Team Providers Name Role Phone INDRA TURNER Primary Care Physician Unavailable SORAYA NIETO Attending Clinician Unavailable ELYSSA PURI Attending Clinician Unavailable Gumaro Augustin DO Attending Clinician Elyssa Puri PA-C Attending Clinician Payers Payer Name Policy Type Policy Number Effective Date Expiration Date S Formerly [facility] [id number] 2018 [facility] MEDICAID 00:00:00 Problems This patient has no known problems. Allergies, Adverse Reactions, Alerts Allergy Allergy Status Severity Reaction(s) Onset Inactive Treating Comm ents Source Name Type Date Date Clinician No Known DA Active [facility] [place] NO KNOWN Drug Active [facility] Medications This patient has no known medications. Procedures This patient has no known procedures. Encounters Start End Encounter Admission Attending Care Care Encounter Source Date/Time Date/Time Type Type Clinicians Facility Department ID 2021-01-11 Emergency [facility] [id number] [facility] 18:11:45 [facility] 2021-11-28 2021-11-28 Outpatient R SORAYA NIETO [facility] [id number] [facility] 08:00:00 08:00:00 [facility] 2020-10-29 2020-10-29 Outpatient R KOJO [facility] [id number] [facility] 08:30:00 08:30:00 ELYSSA [facility] 2020-10-28 2020-10-28 Outpatient R KOJO [facility] [id number] [facility] 08:30:00 08:30:00 [facility] 2020-07-09 2020-07-09 Outpatient R KOJO [facility] [id number] [facility] 08:30:00 08:30:00 [facility] 2020-04-03 2020-04-03 [id number] 07:30:00 08:41:00 Gumaro Pelayo [id number] [place] [id number] [place] [id number] [facility] 2019-10-27 2019-10-27 [facility] [id number] 12:48:48 13:38:31 Visit Elyssa Pelayo [id number] [place] [id number] [facility] [id number] [address] 2019-10-27 2019-10-27 Outpatient R KOJO [facility] [id number] Univers 13:00:00 13:00:00 [facility] Results This patient has no known results.
[2022-01-04] MEDS ORDERED: ACETAMINOPHEN 500 MG TAB ONE (20:10)
--- NOTE | 2022-01-04 20:53 | RAD REPORT ---
EXAM DESCRIPTION: CT - [id number] - 01/04/2022 8:30 pm CLINICAL HISTORY: Trauma, head and neck injury. fall COMPARISON: No comparisons TECHNIQUE: Axial 5 mm thick images of the head were obtained. Axial 2 mm thick images of the cervical spine were obtained with sagittal and coronal reconstruction images generated and reviewed. All CT scans are performed using dose optimization technique as appropriate and may include automated exposure control or mA/KV adjustment according to patient size. FINDINGS: CT HEAD WITHOUT CONTRAST: No acute hemorrhage, hydrocephalus or extra-axial collection is identified.No areas of brain edema or midline shift. The paranasal sinuses and mastoids are clear.The calvarium is intact. CT CERVICAL SPINE WITHOUT CONTRAST: No fracture or subluxation.No prevertebral soft tissues swelling is identified. IMPRESSION: No acute intracranial or cervical spine findings.
--- NOTE | 2022-01-04 21:34 | ER ---
Nurse's Notes [facility] Name: Yolanda Steele Age: 31 yrs Sex: Female : 1990 Arrival Date: 01/04/2022 Time: 19:44 Bed 17 Private MD: Diagnosis: Unspecified injury of head, initial encounter;Fall on same level, unspecified Presentation: 01/04 19:47 Chief complaint: Patient states: fell from standing position at 1800, hit back of head lg3 on concrete. pain to posterior left side. denies LOC. complaints of nausea, vomiting, pain 12/22. Coronavirus screen: Client denies travel out of the [place] in the last 14 days. At this time, the client does not indicate any symptoms associated with coronavirus-19. Ebola Screen: No symptoms or risks identified at this time. Initial Sepsis Screen: Does the patient meet any 2 criteria? No. Patient's initial sepsis screen is negative. Does the patient have a suspected source of infection? No. Patient's initial sepsis screen is negative. Risk Assessment: Do you want to hurt yourself or someone else? Patient reports no desire to harm self or others. Onset of symptoms was January 04, 2022. 19:47 Method Of Arrival: Wheelchair lg3 19:47 Acuity: AMBAR 3 lg3 Triage Assessment: 19:49 General: Appears in no apparent distress. uncomfortable, Behavior is anxious, crying, lg3 fussy. Pain: Complains of pain in back of head Pain currently is 10 out of 10 on a pain scale. Quality of pain is described as crampy, heavy, sharp, shooting, squeezing, throbbing, Noted to be crying, grimacing, guarding, moaning, resistant to movement, Also complains of nausea. EENT: No deficits noted. No signs and/or symptoms were reported regarding the EENT system. Neuro: No deficits noted. Morgan Agitation-Sedation Scale (RASS): 0 - Alert and Calm Level of Consciousness is awake, alert, obeys commands, Oriented to person, place, time, situation, Reports dizziness, headache photophobia. Cardiovascular: No deficits noted. Denies chest pain, shortness of breath, Capillary refill < 3 seconds Clubbing of nail beds is absent JVD is absent Patient's skin is warm and dry. Respiratory: No deficits noted. Airway is patent Trachea midline Respiratory effort is even, unlabored, Respiratory pattern is regular, symmetrical, Breath sounds are clear bilaterally. GI: No deficits noted. No signs and/or symptoms were reported involving the gastrointestinal system. Abdomen is round non-distended, Bowel sounds present X 4 quads. Abd is soft and non tender X 4 quads. Reports nausea. : No deficits noted. No signs and/or symptoms were reported regarding the genitourinary system. Derm: Skin is intact, is healthy with good turgor, Skin is dry, Skin is normal, Skin temperature is warm. Musculoskeletal: No deficits noted. Circulation, motion, and sensation intact. Range of motion: intact in all extremities. 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 Flu vaccine is not up to date. - Social history:: Smoking status: Patient reports the use of cigarette tobacco products, Patient/guardian denies using alcohol, street drugs. - Family history:: not pertinent. Screenin:58 Abuse screen: Denies threats or abuse. Denies injuries from another. Nutritional lg3 screening: No deficits noted. Tuberculosis screening: No symptoms or risk factors identified. Fall Risk Fall in past 12 months (25 points). No secondary diagnosis (0 pts). No IV (0 pts). Ambulatory Aid- None/Bed Rest/Nurse Assist (0 pts). Gait- Normal/Bed Rest/Wheelchair (0 pts) Mental Status- Oriented to own ability (0 pts). Total Lester Fall Scale indicates Low Risk Score (25-44 pts). Fall prevention measures have been instituted. Side Rails Up X 2 Frequent Obs/Assesments occuring As available Patient and Family Educated on Fall Prevention Program and strategies. Assessment: 19:57 General: see triage assessment . lg3 20:13 Pain: Complains of pain in back of head Pain currently is 10 out of 10 on a pain scale. ke1 21:01 Reassessment: Patient appears in no apparent distress at this time. No changes from lg3 previously documented assessment. Patient and/or family updated on plan of care and expected duration. Pain level reassessed. Patient is alert, oriented x 3, equal unlabored respirations, skin warm/dry/pink. pt quietly resting with family at bedside. Vital Signs: 19:47 BP 133 / 89; Pulse 80; Resp 18; Temp 98.9(O); Pulse Ox 97% on R/A; Weight 90.72 kg (R); lg3 Height 5 ft. 7 in. (170.18 cm) (R); Pain 10/10; 21:07 BP 112 / 67; Pulse 74; Resp 16 S; Pulse Ox 98% on R/A; lg3 19:47 Body Mass Index 31.32 (90.72 kg, 170.18 cm) lg3 [place] Coma Score: 21:29 Eye Response: spontaneous(4). Verbal Response: oriented(5). Motor Response: obeys collins commands(6). Total: 15. ED Course: 19:44 Patient arrived in ED. as6 19:47 Paula Sandoval, RN is Primary Nurse. lg3 19:49 Triage completed. lg3 19:49 Arm band placed on right wrist. lg3 19:58 Patient has correct armband on for positive identification. Placed in gown. Bed in low lg3 position. Call light in reach. Side rails up X2. Client placed on continuous cardiac and pulse oximetry monitoring. NIBP monitoring applied. cardiac monitor technician on. Door closed. Noise minimized. Warm blanket given. 19:59 Saji Collins MD is Attending Physician. collins 20:32 CT Head C Spine In Process Unspecified. EDMS 21:55 No provider procedures requiring assistance completed. Patient did not have IV access lg3 during this emergency room visit. Administered Medications: 20:13 Drug: Tylenol 1000 mg Route: PO; ke1 Medication: 21:55 VIS not applicable for this client. lg3 Outcome: 21:34 Discharge ordered by . collins 21:55 Discharged to home via wheelchair. lg3 21:55 Condition: stable 21:55 Discharge instructions given to patient, Instructed on discharge instructions, follow up and referral plans. medication usage, Demonstrated understanding of instructions, follow-up care, medications, Prescriptions given X 3. 21:56 Patient left the ED. lg3 Signatures: Dispatcher [employer] Saji Gonzalez MD MD cha Gibson, Lacie, RN RN lg3 Cosme Rhodes, KALEY RN as6 Adriel [address] RN RN ke1
--- NOTE | 2022-01-04 21:34 | EDPHYS ---
Physician Documentation [facility] Name: Yolanda Steele Age: 31 yrs Sex: Female : 1990 Arrival Date: 01/04/2022 Time: 19:44 Bed 17 Private MD: [facility] Physician Saji Collins HPI: 01/04 21:26 This 31 yrs old Female presents to ER via Wheelchair with complaints of fall collins and hit head. 21:26 The patient complains of pain to the left frontal area, left side of the back of head collins and left occipital area. The patient describes the headache as aching, constant. Onset: The symptoms/episode began/occurred just prior to arrival. Details of fall: The patient fell from an upright position, playing, on boyfriends back. Onset: The symptoms/episode began/occurred just prior to arrival. Associated injuries: The patient sustained injury to the head, neck injury, decreased range of motion, pain. Associated signs and symptoms: The patient has no apparent associated signs or symptoms. Severity of symptoms: At its worst the pain was mild, moderate, in the emergency department the pain is unchanged. Headache History: Denies prior headaches. Severity of symptoms: At their worst the symptoms were mild, in the emergency department the symptoms are unchanged. 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 Flu vaccine is not up to date. - Social history:: Smoking status: Patient reports the use of cigarette tobacco products, Patient/guardian denies using alcohol, street drugs. - Family history:: not pertinent. ROS: 21:26 Constitutional: Negative for fever, chills, and weight loss, Eyes: Negative for injury, collins pain, redness, and discharge, ENT: Negative for injury, pain, and discharge, Neck: Negative for injury, pain, and swelling, Cardiovascular: Negative for chest pain, palpitations, and edema, Respiratory: Negative for shortness of breath, cough, wheezing, and pleuritic chest pain, Abdomen/GI: Negative for abdominal pain, nausea, vomiting, diarrhea, and constipation, Back: Negative for injury and pain, : Negative for injury, bleeding, discharge, and swelling, MS/Extremity: Negative for injury and deformity, Skin: Negative for injury, rash, and discoloration, Psych: Negative for depression, anxiety, suicide ideation, homicidal ideation, and hallucinations, Allergy/Immunology: Negative for hives, rash, and allergies, Endocrine: Negative for neck swelling, polydipsia, polyuria, polyphagia, and marked weight changes, Hematologic/Lymphatic: Negative for swollen nodes, abnormal bleeding, and unusual bruising. 21:26 Neuro: Positive for headache. Exam: 21:26 Constitutional: This is a well developed, well nourished patient who is awake, alert, collins and in no acute distress. Eyes: Pupils equal round and reactive to light, extra-ocular motions intact. Lids and lashes normal. Conjunctiva and sclera are non-icteric and not injected. Cornea within normal limits. Periorbital areas with no swelling, redness, or edema. ENT: Nares patent. No nasal discharge, no septal abnormalities noted. Tympanic membranes are normal and external auditory canals are clear. Oropharynx with no redness, swelling, or masses, exudates, or evidence of obstruction, uvula midline. Mucous membranes moist. Neck: Trachea midline, no thyromegaly or masses palpated, and no cervical lymphadenopathy. Supple, full range of motion without nuchal rigidity, or vertebral point tenderness. No Meningismus. Chest/axilla: Normal chest wall appearance and motion. Nontender with no deformity. No lesions are appreciated. Cardiovascular: Regular rate and rhythm with a normal S1 and S2. No gallops, murmurs, or rubs. Normal PMI, no JVD. No pulse deficits. Respiratory: Lungs have equal breath sounds bilaterally, clear to auscultation and percussion. No rales, rhonchi or wheezes noted. No increased work of breathing, no retractions or nasal flaring. Abdomen/GI: Soft, non-tender, with normal bowel sounds. No distension or tympany. No guarding or rebound. No evidence of tenderness throughout. Back: No spinal tenderness. No costovertebral tenderness. Full range of motion. Female : Normal external genitalia. Skin: Warm, dry with normal turgor. Normal color with no rashes, no lesions, and no evidence of cellulitis. MS/ Extremity: Pulses equal, no cyanosis. Neurovascular intact. Full, normal range of motion. Neuro: Awake and alert, GCS 15, oriented to person, place, time, and situation. Cranial nerves II-XII grossly intact. Motor strength 5/5 in all extremities. Sensory grossly intact. Cerebellar exam normal. Normal gait. Psych: Awake, alert, with orientation to person, place and time. Behavior, mood, and affect are within normal limits. 21:26 Head/face: Noted is contusion, hematoma, that is mild, that is moderate, of the left frontal area, left side of the back of head, left temporal area and left occipital area. Vital Signs: 19:47 BP 133 / 89; Pulse 80; Resp 18; Temp 98.9(O); Pulse Ox 97% on R/A; Weight 90.72 kg (R); lg3 Height 5 ft. 7 in. (170.18 cm) (R); Pain 10/10; 21:07 BP 112 / 67; Pulse 74; Resp 16 S; Pulse Ox 98% on R/A; lg3 19:47 Body Mass Index 31.32 (90.72 kg, 170.18 cm) lg3 Yovany Coma Score: 21:29 Eye Response: spontaneous(4). Verbal Response: oriented(5). Motor Response: obeys collins commands(6). Total: 15. MDM: 19:59 Patient medically screened. collins 21:29 Differential diagnosis: cluster headache, hyponatremia, migraine, sinusitis, collins subarachnoid bleed, subdural hematoma, temporal arteritis, tension headache, trigeminal neuralgia, vasomotor headache. Differential diagnosis: abrasion, closed head injury, contusion, fracture, laceration, multiple trauma, sprain, strain. Data reviewed: vital signs, nurses notes, radiologic studies, CT scan. Data interpreted: cloth cutter: rate is 74 beats/min, rhythm is regular, Pulse oximetry: on room air is 98 %. Test interpretation: by ED physician or midlevel provider:. Counseling: I had a detailed discussion with the patient and/or guardian regarding: the historical points, exam findings, and any diagnostic results supporting the discharge/admit diagnosis, lab results, radiology results, the need for outpatient follow up, for definitive care, a family practitioner. 01/04 20:00 Order name: CT Head C Spine; Complete Time: 21:17 collins 01/04 20:00 Order name: Ice pack; Complete Time: 20:13 collins Administered Medications: 20:13 Drug: Tylenol 1000 mg Route: PO; ke1 Disposition Summary: 01/04/22 21:34 Discharge Ordered Location: Home collins Problem: new collins Symptoms: have improved collins Condition: Stable collins Diagnosis - Unspecified injury of head, initial encounter collins - Fall on same level, unspecified collins Followup: collins - With: Private Physician - When: 2 - 3 days - Reason: Recheck today's complaints, Continuance of care, Re-evaluation by your physician Discharge Instructions: - Discharge Summary Sheet collins - Head Injury, Adult collins - Head Injury, Adult, [id number] collins - Fall Prevention in the Home, Adult collins - Fall Prevention in the Home, Adult, [id number] [facility] Forms: - Medication Reconciliation Form [facility] - Thank You Letter [facility] - Antibiotic Education [facility] - Prescription Opioid Use [facility] Prescriptions: - Ibuprofen 600 mg Oral Tablet - take 1 tablet by ORAL route every 6 hours As needed take with food; 20 tablet; [facility] Refills: 0, Product Selection Permitted - Tylenol 325 mg Oral Tablet - take 2 tablets by ORAL route every 6 hours as needed; 1 bottle; Refills: 0, [facility] Product Selection Permitted - Zofran 4 mg Oral Tablet - take 1 tablet by ORAL route every 12 hours As needed; 20 tablet; Refills: 0, [facility] Product Selection Permitted Signatures: Dispatcher [employer] Saji Gonzalez MD MD cha Gibson, Lacie, RN RN lg3 Adriel Lane RN RN ke1
[2022-01-04 22:00] VITALS: TEMP 98.9
[2022-01-04 22:07] VITALS: BP 112/67; O2SAT 98
== END 2022-01-04 21:56 | disposition home or self-care (01) ==
LOC: ER 19:42
DX: S09.90XA Unspecified injury of head, initial encounter (principal); W18.30XA Fall on same level, unspecified, initial encounter; F17.210 Nicotine dependence, cigarettes, uncomplicated
CPT/HCPCS: 70450; 72125; 99284

== ENCOUNTER 2022-11-05 19:36 | Emergency (ER) | payer BC, OTHER ==
--- OUTSIDE RECORDS SUMMARY | 2022-11-05 19:40 | XMS REPORT | Continuity of Care Document ---
:1990 Author Organization [facility] t Address [address] [place] [address] Care Team Providers Name Role Phone EN HUANG Primary Care Physician Unavailable SORAYA NIETO Attending Clinician Unavailable 2, [facility] Attending Clinician Unavailable Soraya Nieto MD Attending Clinician CÉSAR ACHARYA Attending Clinician Unavailable CÉSAR ACHARYA Attending Clinician Unavailable César Acharya MD Attending Clinician DEYSI MCDOWELL Attending Clinician Unavailable Deysi Mcdowell MD Attending Clinician Richa Real Attending Clinician Marylou Haile MD Attending Clinician Danna UMANZOR Attending Clinician Unavailable Danna Salomon Attending Clinician Doctor Unassigned, [place] Attending Clinician Unavailable ELYSSA VARMA Attending Clinician Unavailable Gumaro Augustin DO Attending Clinician Elyssa Varma PA-C Attending Clinician DEYSI MCDOWELL Admitting Clinician Unavailable Mufti BROWER, Marylou Admitting Clinician Danna UMANZOR Admitting Clinician Unavailable Payers Payer Name Policy Type Policy Number Effective Date Expiration Date Long sanchez [facility]LY [facility] [id number] 2018 CHOICE MEDICAID 00:00:00 [employer] [place] - [id number] 2021 OUT OF STATE 00:00:00 Problems Condition Condition Condition Status Onset Resolution Last Treating Co mments Source Name Details Category Date Date Treatment Clinician Date Vertigo Vertigo Disease Active Univers 2-16 ity of 00:00: [place] 00 Medical Branch Benign Benign Disease Active Univers gestationa gestationa 11-21 it y of l l 00:00: [place] thrombocyt thrombocyt 00 Me dical openia openia Branch Pre-operat Pre-operat Disease Active 2019- U nivers rosalva rosalva 1-27 [place]y of [place]al for tubal 00 Medi melvin ligation ligation Branch Multiparit Multiparit Disease Active 2018- U nivers y y 7-12 ity of 00:00: [place] 00 Medical Branch Urinary Urinary Disease Active Univers incontinen incontinen 712 it y of ce, ce, 00:00: [place] unspecifie unspecifie 00 Me dical d type d type Branch Allergies, Adverse Reactions, Alerts Allergy Allergy Status Severity Reaction(s) Onset Inactive Treating Comm ents Source Name Type Date Date Clinician No Known DA Active U [facility] Allergie 11-17 [facility] l of [place] NO KNOWN Drug Active Univers ALLERGIE Class ity of S [place] [facility] Social History Social Habit Start Date Stop Date Quantity Comments Source History SDOH University o f Alcohol Std Drinks [place] [facility] History SDOH University o f Alcohol Binge [place] [facility] al Branch History SDOH Social Unive rsity of [facility] Med ical Together Branch History SDOH Social Unive rsity of [facility] Medical Branch History SDOH Social Unive rsity of [facility] Medical Membership Branch History SDOH Social Unive rsity of [facility] Meetings Branch Exposure to 2022-06-14 2022-06-24 Not sure University of SARS-CoV-2 (event) 00:00:00 09:23:00 [facility] Tobacco Comment 2022-06-24 2022-06-24 6 cigs per day Unive rsity of 00:00:00 00:00:00 [facility] Tobacco use and 2022-06-24 2022-06-24 Smokeless Universit y of exposure 00:00:00 00:00:00 tobacco non-user [facility] dical Branch Alcohol intake 2022-06-24 2022-06-24 Current University of 00:00:00 00:00:00 non-drinker of [facility] alcohol Branch (finding) History SDOH 2022-05-01 2022-05-01 1 University o f Alcohol Frequency 00:00:00 00:00:00 [facility] edical Branch History SDOH Social 2022-05-01 2022-05-01 5 Unive rsity of Connections Phone 00:00:00 00:00:00 [facility] edical Branch History SDOH Social 2022-05-01 2022-05-01 7 Unive rsity of Connections Living 00:00:00 00:00:00 [place] [facility] History SDOH 2022-05-01 2022-05-01 5 University o f Financial 00:00:00 00:00:00 [place] [facility] History SDOH Food 2022-05-01 2022-05-01 1 Univers ity of Worry 00:00:00 00:00:00 [place] [facility] History SDOH Food 2022-05-01 2022-05-01 1 Univers ity of Scarcity 00:00:00 00:00:00 [place] [facility] History SDOH 2022-05-01 2022-05-01 2 University o f Transport Med 00:00:00 00:00:00 [place] Medic al [facility] History SDOH 2022-05-01 2022-05-01 2 University o f Transport Non-Med 00:00:00 00:00:00 [facility] edical Branch History of tobacco 2016-06-29 Cigarette Smoker University of use 00:00:00 [facility] Sex Ass[birth year] At [birth year] Universit y of 00:00:00 00:00:00 [facility] Smoking Status Start Date Stop Date Source Smokes tobacco daily 2022-06-24 00:00:00 Univers ity [facility] Ex-smoker 2022-05-26 00:00:00 2022-05-26 00:00:00 Universi ty [facility] Medications Ordered Filled Start Stop Current Ordering Indication Dosage Frequency Signature Comments Components Source Medication Medication Date Date Medication? Clinician (SIG) Name Name gadobenate 2022- No [id number] .2mL/kg 0.2 mL/kg, [facility] dimeglumine 05-21 Intravenou i ty of (MULTIHANCE 15:30: 15:16 s, ONCE, 1 [place] -20 mL) 00 :00 dose, On Medical injection Anastasiya 05/21/22 Bran ch 0.2 mL/kg at 0930, Routine acetaminoph Yes 1{tbl} 1 tablet, Univers en-codeine 2-17 Oral, ity of (TYLENOL 21:02: Q4HPRN, [place] #3) 300-30 10 Starting Medic al mg tablet 1 on Fri Branch tablet 05/01/22 at 1502, Until Discontinu ed, Routine, Pain (scale 7-10) acetaminoph 0 Yes 650mg 650 mg, Un stacy en -17 Oral, ity of (TYLENOL) 20:50: Q6HPRN, [place] tablet 650 54 Starting Medic al mg on Fri Branch 05/01/22 at 1450, Until Discontinu ed, Routine, Pain (scale 4-6) butalbital- 2022- No 1{tbl} 1 tablet, Univers acetaminoph 2-17 02-17 Oral, ity of en-caff 05:00: 05:05 ONCE, 1 [place] (ESGIC) 00 :00 dose, On Medical 50-325-40 Anastasiya Branch mg tablet 1 04/30/22 at tablet 2300, Routine meclizine 2022-0 Yes [id number] 25mg Take 1 U nivers 25 mg 2-17 tablet by ity of tablet 00:00: mouth [place] 00 every 6 Medical (six) Branch hours as needed for Dizziness. meclizine 2022-0 Yes [id number] 25mg Take 1 U nivers 25 mg 2-17 tablet by ity of tablet 00:00: mouth [place] 00 every 6 Medical (six) Branch hours as needed for Dizziness. meclizine 0 Yes [id number] 25mg Take 1 U nivers 25 mg 2-17 tablet by ity of tablet 00:00: mouth [place] 00 every 6 Medical (six) Branch hours as needed for Dizziness. meclizine 0 Yes [id number] 25mg Take 1 U nivers 25 mg 2-17 tablet by ity of tablet 00:00: mouth [place] 00 every 6 Medical (six) Branch hours as needed for Dizziness. meclizine 0 Yes [id number] 25mg Take 1 U nivers 25 mg 2-17 tablet by ity of tablet 00:00: mouth [place] 00 every 6 Medical (six) Branch hours as needed for Dizziness. meclizine 0 Yes [id number] 25mg Take 1 U nivers 25 mg 2-17 tablet by ity of tablet 00:00: mouth [place] 00 every 6 Medical (six) Branch hours as needed for Dizziness. meclizine 0 Yes [id number] 25mg Take 1 U nivers 25 mg 2-17 tablet by ity of tablet 00:00: mouth [place] 00 every 6 Medical (six) Branch hours as needed for Dizziness. 2022- No [id number] 1{tbl} Take 1 Univers vitamin 2-17 -17 102 tablet by ity of w/FA tablet 00:00: 00:00 mouth [place] 00 :00 the Medical morning. Branch Sliding Yes Subcutaneo Univ ers Scale 2-16 us, TID ity of Insulin - 23:00: MEALS+HS, [place] as Lispro 00 First dose Medical (HumaLOG) + on [facility] Branch Fsbg 04/30/22 at Testing 1700, Until Discontinu ed, Routine enoxaparin 0 Yes 40mg 40 mg, Unive rs (LOVENOX) 2-16 Subcutaneo ity of injection 23:00: [place], [place]ILY, [place] 40 mg 00 First dose Medical on [facility] Branch 04/30/22 at 1700, Until Discontinu ed, Routine acetaminoph 2022- No 1000mg 1,000 mg, Univers en 16 -16 Oral, ity of (TYLENOL) 17:30: 16:35 ONCE, 1 [place] tablet 00 :00 dose, On Medical 1,000 mg Anastasiya Branch 04/30/22 at 1130, Routine iopamidol 2022- No [id number] 100mL 100 mL, Univers (ISOVUE 04-30 Intravenou ity o f 370-500 mL) 16:47: 16:47 s, ONCE, 1 [place] injection 00 :00 dose, On Medica l 100 mL Anastasiya Branch 04/30/22 at 1100, Routine NaCl 0.9% 2022- No 1000mL at 999 Uni vers (NS) bolus 04-30 mL/hr, ity of infusion 16:45: 16:40 1,000 mL, [place] 1,000 mL 00 :00 IV Medical Infusion, Branch ONCE, 1 dose, On Anastasiya 04/30/22 at 1045, STAT ondansetron 2022- No 4mg 4 mg, Slow Univers (ZOFRAN 04-30 IV Push, ity of (PF)) 15:15: 15:26 ONCE, 1 [place] injection 4 00 :00 dose, On Medi melvin mg Anastasiya Branch 04/30/22 at 0915, PETE diazePAM 2022- No 5mg 5 mg, Slow Un stacy (VALIUM) 04-30 IV Push, ity of injection 5 15:15: 15:30 ONCE, 1 [place] mg 00 :00 dose, On Medical Anastasiya Branch 04/30/22 at 0915, STAT NaCl 0.9% 2022- No 1000mL at 999 Uni vers (NS) bolus 04-26 mL/hr, ity of infusion 06:30: 08:38 1,000 mL, [place] 1,000 mL 00 :00 IV Medical Infusion, Branch ONCE, 1 dose, On 04/26/22 at 0030, STAT meclizine 2022-2022- No 25mg 25 mg, Unive rs (TRAVEL-EAS 04-26 Oral, ity of E 06:15: 06:19 ONCE, 1 [place] (MECLIZINE) 00 :00 dose, On Medi melvin ) tablet 25 Sun Branch mg 04/26/22 at 0015, PETE meclizine 2023-0 Yes [id number] 25mg Take 1 U nivers 25 mg 2-12 tablet by ity of tablet 00:00: mouth [place] 00 every 6 Medical (six) Branch hours as needed for Dizziness. meclizine Yes [id number] 25mg Take 1 U nivers 25 mg 2-12 tablet by ity of tablet 00:00: mouth [place] 00 every 6 Medical (six) Branch hours as needed for Dizziness. meclizine 2022- No [id number] 25mg Take 1 Univers 25 mg 2-12 02-17 tablet by ity of tablet 00:00: 00:00 mouth [place] 00 :00 every 6 Medical (six) Branch hours as needed for Dizziness. acetaminoph Yes [id number] 1{tbl} Take 1 Univers en-codeine 1-30 tablet by ity of (TYLENOL-CO 00:00: mouth [place] DEINE #3) 00 every 4 Medical 300-30 mg (four) Branch tablet hours as needed for Pain (scale 1-3). acetaminoph Yes [id number] 1{tbl} Take 1 Univers en-codeine 1-30 tablet by ity of (TYLENOL-CO 00:00: mouth [place] DEINE #3) 00 every 4 Medical 300-30 mg (four) Branch tablet hours as needed for Pain (scale 1-3). acetaminoph 2022- No [id number] 1{tbl} Take 1 Univers en-codeine 1-30 02-17 tablet by ity of (TYLENOL-CO 00:00: 00:00 [place] DE[place] #3) 00 :00 every 4 Medical 300-30 mg (four) Branch tablet hours as needed for Pain (scale 1-3). ibuprofen 2018-03 Yes [id number] 600mg Take 1 Univers 600 mg 2-07 tablet by ity of tablet 00:00: mouth [place] 00 every 6 Medical (six) Branch hours as needed for Pain (scale 4-6). ibuprofen 2018-03 Yes [id number] 600mg Take 1 Univers 600 mg 2-07 tablet by ity of tablet 00:00: mouth [place] 00 every 6 Medical (six) Branch hours as needed for Pain (scale 4-6). ibuprofen 2018-03 Yes [id number] 600mg Take 1 Univers 600 mg 2-07 tablet by ity of tablet 00:00: mouth [place] 00 every 6 Medical (six) Branch hours as needed for Pain (scale 4-6). ibuprofen 2018-03 Yes [id number] 600mg Take 1 Univers 600 mg 2-07 tablet by ity of tablet 00:00: mouth [place] 00 every 6 Medical (six) Branch hours as needed for Pain (scale 4-6). ibuprofen 2018-03 Yes [id number] 600mg Take 1 Univers 600 mg 2-07 tablet by ity of tablet 00:00: mouth [place] 00 every 6 Medical (six) Branch hours as needed for Pain (scale 4-6). ibuprofen 2018-03 Yes [id number] 600mg Take 1 Univers 600 mg 2-07 tablet by ity of tablet 00:00: mouth [place] 00 every 6 Medical (six) Branch hours as needed for Pain (scale 4-6). ibuprofen 2018-03 Yes [id number] 600mg Take 1 Univers 600 mg 2-07 tablet by ity of tablet 00:00: mouth [place] 00 every 6 Medical (six) Branch hours as needed for Pain (scale 4-6). ibuprofen 2018-03 Yes [id number] 600mg Take 1 Univers 600 mg 2-07 tablet by ity of tablet 00:00: mouth [place] 00 every 6 Medical (six) Branch hours as needed for Pain (scale 4-6). 2018-03 Yes [id number] 1{tbl} Take 1 Univers vitamin 2-07 102 tablet by ity of w/FA tablet 00:00: mouth [place] 00 daily. Medical Branch ibuprofen 2018-03 Yes [id number] 600mg Take 1 Univers 600 mg 2-07 tablet by ity of tablet 00:00: mouth [place] 00 every 6 Medical (six) Branch hours as needed for Pain (scale 4-6). 2018- Yes [id number] 1{tbl} Take 1 Univers vitamin 2-07 102 tablet by ity of w/FA tablet 00:00: mouth [place] 00 daily. Medical Branch 2018-2022- No [id number] 1{tbl} Take 1 Univers vitamin 2-07 02-17 102 tablet by ity of w/FA tablet 00:00: 00:00 [place] 00 :00 daily. Medical Branch Immunizations Ordered Filled Immunization Date Status Comments [facility] e Immunization Name Name Influenza Virus 2022-03-15 Completed Universit y of Vaccine 00:00:00 [facility] Influenza Virus 2022-03-15 Completed Universit y of Vaccine 00:00:00 [facility] Influenza Virus 2022-03-15 Completed Universit y of Vaccine 00:00:00 [facility] TDAP (ADACEL) 2018-12-22 Completed University of VACCINE 00:00:00 [facility] TDAP (ADACEL) 2018-12-22 Completed University of VACCINE 00:00:00 [facility] TDAP (ADACEL) 2018-12-22 Completed University of VACCINE 00:00:00 [facility] TDAP (ADACEL) 2018-12-22 Completed University of VACCINE 00:00:00 [facility] TDAP (ADACEL) 2018-12-22 Completed University of VACCINE 00:00:00 [facility] TDAP (ADACEL) 2018-12-22 Completed University of VACCINE 00:00:00 [facility] TDAP (ADACEL) 2018-12-22 Completed University of VACCINE 00:00:00 [facility] TDAP (ADACEL) 2018-12-22 Completed University of VACCINE 00:00:00 [facility] TDAP (ADACEL) 2018-12-22 Completed University of VACCINE 00:00:00 [facility] TDAP 2011-03-15 Completed University of 00:00:00 [facility] TDAP 2011-03-15 Completed University of 00:00:00 [facility] TDAP 2011-03-15 Completed University of 00:00:00 [facility] TDAP 2011-03-15 Completed University of 00:00:00 [facility] TDAP 2011-03-15 Completed University of 00:00:00 [facility] TDAP 2011-03-15 Completed University of 00:00:00 [facility] TDAP 2011-03-15 Completed University of 00:00:00 [facility] TDAP 2011-03-15 Completed University of 00:00:00 [facility] TDAP 2011-03-15 Completed University of 00:00:00 [facility] Rubella 2010-03-25 Completed University of 00:00:00 [facility] Rubella 2010-03-25 Completed University of 00:00:00 [facility] Rubella 2010-03-25 Completed University of 00:00:00 [facility] Rubella 2010-03-25 Completed University of 00:00:00 [place] [facility] Rubella 2010-03-25 Completed University of 00:00:00 [place] [facility] Rubella 2010-03-25 Completed University of 00:00:00 [place] [facility] Rubella 2010-03-25 Completed University of 00:00:00 [place] [facility] Rubella 2010-03-25 Completed University of 00:00:00 [place] [facility] Rubella 2010-03-25 Completed University of 00:00:00 [facility] Vital Signs Vital Name Observation Time Observation Value Comments Source Systolic blood 2022-06-24 14:37:00 107 mm[Hg] Univer sity of pressure [facility] Branch Diastolic blood 2022-06-24 14:37:00 73 mm[Hg] Unive rsity of pressure [facility] Heart rate 2022-06-24 14:37:00 74 /min Universi ty of [facility] Body temperature 2022-06-24 14:37:00 37.06 Chika Univ ersity of [facility] Body height 2022-06-24 14:37:00 170.2 cm Universi ty of [place] [facility] [place] Body weight 2022-06-24 14:37:00 92.171 kg Universi ty of [facility] BMI 2022-06-24 14:37:00 31.83 kg/m2 Universi ty of [facility] Systolic blood 2022-05-26 16:08:00 119 mm[Hg] Univer sity of pressure [facility] Diastolic blood 2022-05-26 16:08:00 58 mm[Hg] Unive rsity of pressure [facility] Heart rate 2022-05-26 16:08:00 76 /min Universi ty of [place] [facility] [place] Body height 2022-05-26 16:08:00 170.2 cm Universi ty of [place] [facility] Body weight 2022-05-26 16:08:00 93.895 kg Universi ty of [place] [facility] [place] BMI 2022-05-26 16:08:00 32.42 kg/m2 Universi ty of [facility] Oxygen saturation in 2022-05-26 16:08:00 98 /min University Arterial blood by [facility] Pulse oximetry Branch Systolic blood 2022-05-01 20:48:00 101 mm[Hg] Univer sity of pressure [facility] Diastolic blood 2022-05-01 20:48:00 56 mm[Hg] Unive rsity of pressure [place] [facility] Heart rate 2022-05-01 20:48:00 65 /min Universi ty of [place] [facility] Body temperature 2022-05-01 20:47:00 36.61 Chika Univ ersity of [place] [facility] Respiratory rate 2022-05-01 20:47:00 18 /min Univ ersity of [place] [facility] Oxygen saturation in 2022-05-01 20:47:00 98 /min University of Arterial blood by [facility] Pulse oximetry Branch Body height 2022-04-30 21:20:00 170.2 cm Universi ty of [place] [facility] Body weight 2022-04-30 21:20:00 94.348 kg Universi ty of [place] [facility] BMI 2022-04-30 21:20:00 32.58 kg/m2 Universi ty of [place] [facility] Systolic blood 2022-04-26 08:31:00 96 mm[Hg] Univer sity of pressure [place] [facility] Diastolic blood 2022-04-26 08:31:00 61 mm[Hg] Unive rsity of pressure [place] [facility] Heart rate 2022-04-26 08:31:00 77 /min Universi ty of [place] [facility] Respiratory rate 2022-04-26 08:31:00 16 /min Univ ersity of [place] [facility] Oxygen saturation in 2022-04-26 08:31:00 97 /min University of Arterial blood by [facility] Pulse oximetry Branch Body temperature 2022-04-26 06:34:30 35.72 Chika Univ ersity of [place] [facility] Body height 2022-04-26 06:06:00 177.8 cm Universi ty of [place] [facility] Body weight 2022-04-26 06:06:00 95.255 kg Universi ty of [place] [facility] BMI 2022-04-26 06:06:00 30.13 kg/m2 Universi ty of [place] [facility] Procedures Procedure Date / Time Performing Clinician Source Performed MR INTERNAL AUDITORY 2022-05-21 15:32:00 Michael Garcias [facility] ity of [place] CANALS W WO CONTRAST [facility] CONSENT/REFUSAL FOR 2022-05-21 14:09:41 Doctor Unassigned, No Un [facility] DIAGNOSIS AND TREATMENT Name Medical Branch ASSIGNMENT OF BENEFITS 2022-05-21 14:09:26 Doctor Unassigned, No [facility] Name [facility] POCT GLUCOSE (AUTOMATED) 2022-05-01 23:35:00 Deysi Mcdowell [facility] POCT GLUCOSE (AUTOMATED) 2022-05-01 18:08:00 Deysi Mcdowell [facility] POCT GLUCOSE (AUTOMATED) 2022-05-01 14:12:00 Deysi Mcdowell [facility] BASIC METABOLIC PANEL 2022-05-01 11:34:00 Shantanu Barahona [facility] (NA, K, CL, CO2, [facility] GLUCOSE, BUN, CREATININE, CA) CBC WITH DIFF 2022-05-01 11:34:00 [facility] PO[facility]UCOSE (AUTOMATED) 2022-05-01 03:27:00 Deysi Mcdowell [facility] URINALYSIS 2022-04-30 22:45:00 [facility] POCT GLUCOSE (AUTOMATED) 2022-04-30 22:36:00 Deysi Mcdowell [facility] MAGNESIUM 2022-04-30 22:35:00 Jun [facility] SYPHILIS IGG/IGM 2022-04-30 22:35:00 Jun [facility] POCT TEST 2022-04-30 17:59:00 Richa [facility] URINE DRUG (IMMUNOASSAY) 2022-04-30 17:58:00 Richa Sawant [facility] SCREEN CT ANGIOGRAM HEAD 2022-04-30 16:55:16 Richa Sawant [facility] CT ANGIOGRAM NECK 2022-04-30 16:55:16 Richa Sawant [facility] CT HEAD WO CONTRAST 2022-04-30 16:50:06 Richa Sawant [facility] COMP. METABOLIC PANEL 2022-04-30 16:32:00 Richa Sawant [facility] ([id number]) Medical Branch ETHANOL 2022-04-30 16:32:00 Richa Sawant [facility] CBC WITH DIFF 2022-04-30 16:32:00 Richa Sawant [place] [facility] CONSENT/REFUSAL FOR 2022-04-30 14:28:02 Doctor Unassigned, No Un iversity of [place] DIAGNOSIS AND TREATMENT [facility] HOSPITAL ADMISSION 2022-04-30 06:01:00 Doctor Unassigned, No Uni versity of [facility] URINE DRUG (IMMUNOASSAY) 2022-04-26 07:22:00 Danna Umanzor Uni versity of [facility] SCREEN URINALYSIS 2022-04-26 07:22:00 Danna Umanzor [place] [facility] COMP. METABOLIC PANEL 2022-04-26 06:35:00 Danna Umanzor [facility] ([id number]) [facility] CBC WITH DIFF 2022-04-26 06:35:00 Marzena, K [facility] o [facility] EMERGENCY DEPARTMENT 2022-04-26 06:01:00 Doctor Unassigned, No U niversity of [place] DOCUMENTS [facility] Encounters Start End Encounter Admission Attending Care Care Encounter Source Date/Time Date/Time Type Type Clinicians Facility Department ID 2021-01-11 Emergency [facility] [id number] Univers 18:11:45 ity of [facility] 2022-07-02 2022-07-02 Outpatient R SORAYA NIETO [facility] [id number] Univers 08:30:00 08:30:00 ity of [facility] 2022-06-24 2022-06-24 Motion Picture Commentator 2, Adc Lab [facility] [id number]..840.114 [id number] Univers 10:15:00 10:30:00 Visit Soraya Nieto [id number] ity of [place] PROF[place] [id number] In dic[address] 2022-06-24 2022-06-24 Office Soraya Nieto [facility] [id number] Univers 09:30:00 10:00:00 Visit Delonte OCONNELL 350.1.13.10 i ty of [place] [id number] In dical NAL [address] Branch BUILDING 2022-06-24 2022-06-24 Outpatient R SORAYA NIETO [facility] [id number] Univers 09:30:00 09:54:22 ity of [facility] 2022-05-26 2022-05-26 Outpatient R CÉSAR ACHARYA [facility] [id number] Univers 10:20:00 12:25:31 CÉSAR ACHARYA ity of [facility] 2022-05-26 2022-05-26 [facility] [id number] Univers 10:20:00 12:25:31 Visit César [facility] [id number] ity of [place] 4.2.7.2.686 [place] AARTI?BLEA [id number] In dicdiamond KNEY [address] [place] MEDICAL OFFICE BUILDING 2022-05-21 2022-05-21 Outpatient R JEREMIAS [facility] [id number] Univers 08:13:09 23:59:00 DEYSI ity of [facility] 2022-05-21 2022-05-21 [facility] [id number] Univers 08:00:00 23:59:00 Encounter Deysi OCONNELL [id number] ity [facility] 4.2.7.2.686 [facility] [id number] [facility] 804 Branch 2022-05-21 2022-05-21 Outpatient R JEREMIAS [facility] [id number] Univers 08:45:00 08:45:00 DEYSI ity of [facility] 2022-04-30 2022-05-01 Emergency Richa Sawant [id number] Univers 08:28:00 18:40:00 Deysi Mcdowell 350.1.13.10 ity of [facility] 4.2.7.2.686 [place] [id number] [facility] 094 Branch 2022-04-30 2022-05-01 Outpatient X JEREMIAS [facility] [id number] Univers 08:28:00 18:40:00 DEYSI ity of [facility] 2022-04-26 2022-04-26 Emergency X Danna UMANZOR [facility] ERT [id number] Univers 00:02:00 02:44:00 ity [facility] 2022-04-26 2022-04-26 Emergency Danna Umanzor [facility] [id number] Univers 00:02:00 02:44:00 Omaira OCONNELL 350.1.13.10 i ty of [place] 4.2.7.2.686 [facility] [id number] [facility] 084 Branch 2022-04-26 2022-04-26 Orders Doctor LOREN [id number] Univers 00:00:00 00:00:00 Only Unassigned, KIRA 350.1.13.10 ity of [facility] 4.2.7.2.686 [place] [id number] [facility] 009 Branch 2022-01-13 2022-01-13 Outpatient SORAYA ARTEAGA [facility] [id number] [facility] 2021-11-28 Outpatient Edgardo NIETO SORAYA [facility] [id number] Univers 08:00:00 08:00:00 [facility] 2020-10-29 2020-10-29 Outpatient Edgardo VARMA [facility] [id number] Univers 08:30:00 08:30:00 [facility] 2020-10-28 2020-10-28 Outpatient Edgardo VARMA [facility] [id number] Univers 08:30:00 08:30:00 [facility] 2020-07-09 2020-07-09 Outpatient Edgardo VARMA [facility] [id number] Univers 08:30:00 08:30:00 [facility] 2020-04-03 2020-04-03 Emergency , [facility] [id number] 07:30:00 08:41:00 Gumaro Oconnell [id number] [place] [id number] [place] [id number] 2019-10-27 2019-10-27 [facility] [id number] 12:48:48 13:38:31 Visit Elyssa Oconnell [id number] [place] [id number] asya [id number] [address] 2019-10-27 2019-10-27 Outpatient R KOJO [facility] [id number] Univers 13:00:00 13:00:00 ELYSSA grnestor [facility] Results Test Description Test Time Test Comments Results Result Comments Source POCT GLUCOSE (AUTOMATED) 2022-05-01 23:36:39 Test Item Value Reference Range Interpretation Comme nts POCT GLU (test code = 6934084728) 110 mg/dL 70-110 Lab Interpretation (test code = 02668-6) [facility] 18:09:58 Test Item Value Reference Range Interpretation Comments POCT GLU (test code = 7156049024) 128 mg/dL 70-110 H Lab Interpretation (test code = Abnormal 13767-7) [facility] [id number] 15:50:22 Test Item Value Reference Range Interpretation Comments Syphilis IgG/IgM (test Non-reactive Non-reactive code = 59654-1) MARGE (test code = MARGE) Non-reactive - No serologic evidence of T. pallidum infection. Cannot exclude incubating or early syphilis. Submit a second specimen in 2-4 weeks if syphilis is clinically suspected. Equivocal - Further testing to follow. Reactive - Further testing to follow. Lab Interpretation (test Normal code = 82126-4) [facility]2022-05-01 14:13:30 Test Item Value Reference Range Interpretation Comments POCT GLU (test code = 4894405502) 93 mg/dL 70-110 Lab Interpretation (test code = Normal 44248-3) [facility] GLUCOSE (AUTOMATED)2022-05-01 03:28:01 Test Item Value Reference Range Interpretation Comments POCT GLU (test code = 9623552579) 133 mg/dL 70-110 H Lab Interpretation (test code = Abnormal 99337-5) [facility] Hospital[facility] [id number] 23:03:44 Test Item Value Reference Range Interpretation Comments MAGNESIUM (test code = 7909071841) 1.8 mg/dL 1.7-2.4 Lab Interpretation (test code = Normal 53134-1) [facility] GLUCOSE (AUTOMATED)2022-04-30 22:38:45 Test Item Value Reference Range Interpretation Comments POCT GLU (test code = 8068853091) 99 mg/dL 70-110 Lab Interpretation (test code = Normal 56153-0) [facility] [id number] 17:59:00 Test Item Value Reference Range Interpretation Comments POCT PREG (test code = 1605) negative On board controls acceptable with present C Line (test code = 3574) POCT PREG LOT # (test code = 3575) [id number] POCT PREG TEST DATE (test 08/13/2023 code = 3576) Lab Interpretation (test code = Normal 58800-3) [facility]. METABOLIC PANEL (25920)2022-04-30 17:29:29 Test Item Value Reference Range Interpretation Comments NA (test code = 141 mmol/L 135-145 9872154211) K (test code = 3.7 mmol/L 3.5-5.0 7035109115) CL (test code = 120 mmol/L 98-108 H 3544903940) CO2 TOTAL (test code = 20 mmol/L 23-31 L 9088472177) AGAP (test code = 1 2-16 L 9128836298) BUN (test code = 7 mg/dL 7-23 8549750854) GLUCOSE (test code = 71 mg/dL 70-110 1474347597) CREATININE (test code = 0.55 mg/dL 0.50-1.04 6950722792) TOTAL BILI (test code = 0.4 mg/dL 0.1-1.1 4335872018) CALCIUM (test code = 6.4 mg/dL 8.6-10.6 L 0936454246) T PROTEIN (test code = 5.6 g/dL 6.3-8.2 L 1592349713) ALBUMIN (test code = 2.8 g/dL 3.5-5.0 L 0656585514) ALK PHOS (test code = 49 U/L 34-122 3307345383) ALTv (test code = 14 U/L 535 1742-6) AST(SGOT) (test code = 14 U/L 13-40 3011548580) eGFR (test code = 128.1 mL/min/1.73m2 9662673633) MARGE (test code = MARGE) Association of Glomerular Filtration Rate (GFR) and Staging of Kidney Disease* + --+ --+ ------+| GFR (mL/min/1.73 m2) ?| With Kidney Damage ?| ?Without Kidney Damage+ --------+ --------+ +| ?>90 ?| ?Stage one ?| ? Normal ?+ ---+ ---+ -------+| ?60-89 ?| ?Stage two ?| ? Decreased GFR ? + --+ --+ ------+| ?30-59 ?| ?Stage three ?| ? Stage three ? + --+ --+ ------+| ?15-29 ?| ?Stage four ? | ? Stage four ?+ ---+ ---+ -------+| ?<15 (or dialysis) ? ?| ?Stage five ? | ? Stage five ?+ ---+ ---+ -------+ *Each stage assumes the associated GFR level has been in effect for at least three months. ?Stages 1 to 5, with or without kidney disease, indicate chronic kidney disease. Notes: Determination of stages one and two (with eGFR >59mL/min/1.73 m2) requires estimation of kidney damage for at least three months as defined by structural or functional abnormalities of the kidney, manifested by either:Pathological abnormalities or Markers of kidney damage (including abnormalities in the composition of the blood or urine or abnormalities in imaging tests). Lab Interpretation Abnormal (test code = 50189-2) [facility] HospitalETHANOL2023-02-16 17:27:49 ALCOHOL<10mg/dL04/30/2022 11:27 [facility]10 Dytyiyzu39-485 Toxic>100 Depression of HAND ALMOND BLANCHER>400 Fatalities [facility]UnG[facility] HospitalCB WITH [id number] 17:00:01 Test Item Value Reference Range Interpretation Comments WBC (test code = 9.34 See_Comment [Automated 1290-2) message] The sy stem which generated this result transmitted reference range : 4.30 - 11.10 10*3/?L. The reference range was not used to interpret this result as normal/abnormal . RBC (test code = 3.73 See_Comment L [Automated 789-8) message] The sy stem which generated this result transmitted reference range : 3.93 - 5.25 10*6/?L. The reference range was not used to interpret this result as normal/abnormal . HGB (test code = 11.3 g/dL 11.6-15.0 L 718-7) HCT (test code = 35.0 % 35.7-45.2 L 4544-3) MCV (test code = 93.8 fL 80.6-95.5 787-2) MCH (test code = 30.3 pg 25.9-32.8 785-6) MCHC (test code = 32.3 g/dL 31.6-35.1 786-4) RDW-SD (test code = 43.3 fL 39.0-49.9 63292-5) RDW-CV (test code = 12.6 % 12.0-15.5 788-0) PLT (test code = 125 See_Comment L [Automated 777-3) message] The sy stem which generated this result transmitted reference range : 166 - 358 10*3/ ?L. The reference r adriana was not used to interpret this result as normal/abnormal . MPV (test code = 12.4 fL 9.5-12.9 51801-6) NRBC/100 WBC (test 0.0 See_Comment [Automat ed code = 7014398998) message] The system which generated this result transmitted reference range : 0.0 - 10.0 /100 WBCs. The refer ence range was not u sed to interpret th is result as normal/abnormal . NRBC x10^3 (test code See_Comment [Auto mated = 5810844967) message] The s ystem which generated this result transmitted reference range : 10*3/?L. The reference range was not used to interpret this result as normal/abnormal . GRAN MAT (NEUT) % 72.0 % (test code = 770-8) IMM GRAN % (test code 0.40 % = 8886337564) LYMPH % (test code = 19.1 % 736-9) MONO % (test code = 4.7 % 5905-5) EOS % (test code = 3.3 % 713-8) BASO % (test code = 0.5 % 706-2) GRAN MAT x10^3(ANC) 6.72 10*3/uL 1.88-7.09 (test code = 7097334050) IMM GRAN x10^3 (test 0.04 10*3/uL 0.00-0.06 code = 8412987827) LYMPH x10^3 (test code 1.78 10*3/uL 1.32-3.29 = 731-0) MONO x10^3 (test code 0.44 10*3/uL 0.33-0.92 = 742-7) EOS x10^3 (test code = 0.31 10*3/uL 0.03-0.39 711-2) BASO x10^3 (test code 0.05 10*3/uL 0.01-0.07 = 704-7) Lab Interpretation Abnormal (test code = 38193-3) [facility]. METABOLIC PANEL (21245)2022-04-26 07:14:39 Test Item Value Reference Range Interpretation Comments NA (test code = 139 mmol/L 135-145 6282924974) K (test code = 4.2 mmol/L 3.5-5.0 7744392378) CL (test code = 105 mmol/L 98-108 9592652026) CO2 TOTAL (test code 25 mmol/L 23-31 = 4196366106) AGAP (test code = 9 2-16 1167095588) BUN (test code = 13 mg/dL 7-23 4018837110) GLUCOSE (test code = 100 mg/dL 70-110 3371148268) CREATININE (test code 0.82 mg/dL 0.50-1.04 = 4466205468) TOTAL BILI (test code 0.6 mg/dL 0.1-1.1 = 1841939868) CALCIUM (test code = 9.5 mg/dL 8.6-10.6 9658045775) T PROTEIN (test code 7.8 g/dL 6.3-8.2 = 1115748434) ALBUMIN (test code = 4.4 g/dL 3.5-5.0 2237099080) ALK PHOS (test code = 68 U/L 34-122 7425353514) ALTv (test code = 19 U/L 5-35 1742-6) AST(SGOT) (test code 20 U/L 13-40 = 4829924034) eGFR (test code = 80.8 mL/min/1.73m2 1367527410) MARGE (test code = MARGE) Association of Glomerular Filtration Rate (GFR) and Staging of Kidney Disease* + + +- +| GFR (mL/min/1.73 m2) ?| With Kidney Damage ?| ?Without Kidney Damage+ ------+ ----+ ------+| ?>90 ?| ?Stage one ?| ? Normal ?+ -+ + -+| ?60-89 ?| ?Stage two ?| ? Decreased GFR ? + + +- +| ?30-59 ?| ?Stage three ?| ? Stage three ? + + +- +| ?15-29 ?| ?Stage four ? | ? Stage four ?+ -+ + -+| ?<15 (or dialysis) ? ?| ?Stage five ? | ? Stage five ?+ -+ + -+ *Each stage assumes the associated GFR level has been in effect for at least three months. ?Stages 1 to 5, with or without kidney disease, indicate chronic kidney disease. Notes: Determination of stages one and two (with eGFR >59mL/min/1.73 m2) requires estimation of kidney damage for at least three months as defined by structural or functional abnormalities of the kidney, manifested by either:Pathological abnormalities or Markers of kidney damage (including abnormalities in the composition of the blood or urine or abnormalities in imaging tests). [facility] WITH [id number] 07:02:03 Test Item Value Reference Range Interpretation Comments WBC (test code = 13.44 See_Comment H [Automated 6690-2) message] The sy stem which generated this result transmitted reference range : 4.30 - 11.10 10*3/?L. The reference range was not used to interpret this result as normal/abnormal . RBC (test code = 4.57 See_Comment [Automated 789-8) message] The sy stem which generated this result transmitted reference range : 3.93 - 5.25 10*6/?L. The reference range was not used to interpret this result as normal/abnormal . HGB (test code = 14.1 g/dL 11.6-15.0 718-7) HCT (test code = 42.0 % 35.7-45.2 4544-3) MCV (test code = 91.9 fL 80.6-95.5 787-2) MCH (test code = 30.9 pg 25.9-32.8 785-6) MCHC (test code = 33.6 g/dL 31.6-35.1 786-4) RDW-SD (test code = 42.5 fL 39.0-49.9 72981-0) RDW-CV (test code = 12.7 % 12.0-15.5 788-0) PLT (test code = 149 See_Comment L [Automated 777-3) message] The sy stem which generated this result transmitted reference range : 166 - 358 10*3/ ?L. The reference r adriana was not used to interpret this result as normal/abnormal . MPV (test code = 12.1 fL 9.5-12.9 16238-1) NRBC/100 WBC (test 0.0 See_Comment [Automat ed code = 2687419657) message] The system which generated this result transmitted reference range : 0.0 - 10.0 /100 WBCs. The refer ence range was not u sed to interpret th is result as normal/abnormal . NRBC x10^3 (test code See_Comment [Auto mated = 9390673858) message] The s ystem which generated this result transmitted reference range : 10*3/?L. The reference range was not used to interpret this result as normal/abnormal . GRAN MAT (NEUT) % 72.9 % (test code = 770-8) IMM GRAN % (test code 0.60 % = 1410312375) LYMPH % (test code = 15.9 % 736-9) MONO % (test code = 6.0 % 5905-5) EOS % (test code = 3.9 % 713-8) BASO % (test code = 0.7 % 706-2) GRAN MAT x10^3(ANC) 9.81 10*3/uL 1.88-7.09 H (test code = 8944508655) IMM GRAN x10^3 (test 0.08 10*3/uL 0.00-0.06 H code = 1607137622) LYMPH x10^3 (test code 2.14 10*3/uL 1.32-3.29 = 731-0) MONO x10^3 (test code 0.80 10*3/uL 0.33-0.92 = 742-7) EOS x10^3 (test code = 0.52 10*3/uL 0.03-0.39 H 711-2) BASO x10^3 (test code 0.09 10*3/uL 0.01-0.07 H = 704-7) Lab Interpretation Abnormal (test code = 99092-2) [facility]"
[2022-11-05] MEDS ORDERED: KETOROLAC 30 MG/ML INJ ONE (20:29)
[2022-11-05] MEDS ORDERED: HYDROCODONE/APAP 7.5/325 MG TAB ONE (20:29)
--- NOTE | 2022-11-05 20:40 | RAD REPORT ---
EXAM DESCRIPTION: RAD - Ankle Left 3 View -11/05/2022 8:29 pm CLINICAL HISTORY: Left ankle pain status post injury FINDINGS: No fracture or dislocation is seen.
--- NOTE | 2022-11-05 20:41 | RAD REPORT ---
EXAM DESCRIPTION: RAD - Foot Left 3 View - 11/05/2022 8:29 pm CLINICAL HISTORY: Left Foot pain FINDINGS: No fracture or dislocation is seen.
--- NOTE | 2022-11-05 21:07 | ER ---
Nurse's Notes [facility] Name: Yolanda Steele Age: 32 yrs Sex: Female : 1990 Arrival Date: 11/05/2022 Time: 19:36 Bed 9 Private MD: Diagnosis: Sprain of ankle;Sprain of foot Presentation: 11/05 19:53 Chief complaint: Patient states: fell and twisted left ankle today. Coronavirus screen: as6 At this time, the client does not indicate any symptoms associated with coronavirus-19. Ebola Screen: No symptoms or risks identified at this time. Initial Sepsis Screen: Does the patient meet any 2 criteria? No. Patient's initial sepsis screen is negative. Does the patient have a suspected source of infection? No. Patient's initial sepsis screen is negative. Risk Assessment: Do you want to hurt yourself or someone else? Patient reports no desire to harm self or others. Onset of symptoms was November 05, 2022 at 14:00. 19:53 Acuity: AMBAR 4 as6 19:53 Method Of Arrival: Ambulatory as6 Triage Assessment: 19:58 General: Appears uncomfortable, Behavior is calm, cooperative. Pain: Complains of pain as6 in left lateral ankle, left Achilles, left medial ankle and anterior aspect of left ankle. Musculoskeletal: Range of motion: limited in left ankle Swelling present in left lateral ankle, left Achilles, left medial ankle and anterior aspect of left ankle. 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 - Social history:: Smoking status: Patient reports the use of cigarette tobacco products, smokes one-half pack cigarettes per day. Screenin:32 [facility] ED Fall Risk Assessment (Adult) History of falling in the last 3 months, cm10 including since admission Yes- single mechanical fall (1 pt) Confusion or Disorientation No (0 pts) Intoxicated or Sedated No (0 pts) Impaired Gait Yes (1 pt) Mobility Assist Device Used Yes (1 pt) Altered Elimination No (0 pt) Score/Fall Risk Level 0 - 2 = Low Risk Oriented to surroundings, Maintained a safe environment, Hourly rounding (assess needs \T\ fall precautionary measures) done. Abuse screen: Denies threats or abuse. Denies injuries from another. Nutritional screening: No deficits noted. Tuberculosis screening: No symptoms or risk factors identified. Vital Signs: 19:53 BP 131 / 66; Pulse 80; Resp 18 S; Temp 98.2(TE); Pulse Ox 95% on R/A; Weight 96.62 kg as6 (R); Height 5 ft. 7 in. (R); Pain 10/10; 19:53 Body Mass Index 33.36 (96.62 kg, 170.18 cm) as6 19:53 Pain Scale: Adult as6 ED Course: 19:47 Patient arrived in ED. es 19:49 Tonya Marquez FNP-C is [facility]. snw 19:49 Saji Collins MD is Attending Physician. snw 19:57 Triage completed. as6 19:58 Arm band placed on. as6 20:30 Ankle Left 3 View XRAY In Process Unspecified. EDMS 20:30 Foot Left 3 View XRAY In Process Unspecified. EDMS 21:32 Patient has correct armband on for positive identification. Provided Education on: N/A. cm10 21:32 No provider procedures requiring assistance completed. Patient did not have IV access cm10 during this emergency room visit. 21:32 3D boot applied to left foot. cm10 Administered Medications: 20:40 Drug: Ketorolac IM 30 mg Route: IM; Site: right deltoid; kl 21:31 Follow up: Response: No adverse reaction cm10 20:40 Not Given (Patient Refused): HYDROcodone-acetaminophen PO 5 mg-325 mg 1 tabs PO once kl Medication: 21:32 VIS not applicable for this client. cm10 Outcome: 21:06 Discharge ordered by . snw 21:33 Discharged to home with crutches. cm10 21:33 Condition: good 21:33 Discharge instructions given to patient, Instructed on discharge instructions, follow up and referral plans. medication usage, Demonstrated understanding of instructions, follow-up care, Prescriptions given X 2. 21:33 Patient left the ED. cm10 Signatures: Dispatcher [employer] Emmy Churchill RN RN kl Waters, Shelly, FNP-C FNP-Csnw Kim Brooks Ashby, KALEY RN as6 Maggy Kunz RN RN cm10 Corrections: (The following items were deleted from the chart) 19:58 19:57 PMHx: GERD; as6 as6
--- NOTE | 2022-11-05 21:07 | EDPHYS ---
Physician Documentation [facility] Name: Yolanda Steele Age: 32 yrs Sex: Female : 1990 Arrival Date: 11/05/2022 Time: 19:36 Bed 9 Private MD: Saji Cordova HPI: 11/05 21:10 This 32 yrs old Female presents to ER via Ambulatory with complaints of Ankle Injury. snw 21:10 The patient presents with decreased range of motion, an injury, pain, that is acute, snw swelling. The complaints affect the left ankle. Onset: The symptoms/episode began/occurred acutely, just prior to arrival. Context: The problem was sustained at home, resulted from a mis-step by the patient, stairs, The mechanism of injury involved inversion of the affected ankle. The patient is unable to bear weight. can ambulate using crutches. Severity of symptoms: At their worst the symptoms were moderate. The patient has not experienced similar symptoms in the past. It is unknown whether or not the patient has recently seen a physician. fell to ground but onto buttock, did not strike head, no LOC. 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 - Social history:: Smoking status: Patient reports the use of cigarette tobacco products, smokes one-half pack cigarettes per day. ROS: 21:10 Constitutional: Negative for fever, chills, and weight loss, Eyes: Negative for injury, snw pain, redness, and discharge, ENT: Negative for injury, pain, and discharge, Neck: Negative for injury, pain, and swelling, Cardiovascular: Negative for chest pain, palpitations, and edema, Respiratory: Negative for shortness of breath, cough, wheezing, and pleuritic chest pain, Abdomen/GI: Negative for abdominal pain, nausea, vomiting, diarrhea, and constipation, Back: Negative for injury and pain, : Negative for injury, bleeding, discharge, and swelling, Skin: Negative for injury, rash, and discoloration, Neuro: Negative for headache, weakness, numbness, tingling, and seizure, Psych: Negative for depression, anxiety, suicide ideation, homicidal ideation, and hallucinations. 21:10 MS/extremity: Positive for abrasion, decreased range of motion, pain, swelling, of the left foot and left ankle. Exam: 21:08 Constitutional: This is a well developed, well nourished patient who is awake, alert, snw and in no acute distress. Head/Face: Normocephalic, atraumatic. Eyes: Pupils equal round and reactive to light, extra-ocular motions intact. Lids and lashes normal. Conjunctiva and sclera are non-icteric and not injected. Cornea within normal limits. Periorbital areas with no swelling, redness, or edema. ENT: Nares patent. No nasal discharge, no septal abnormalities noted. Tympanic membranes are normal and external auditory canals are clear. Oropharynx with no redness, swelling, or masses, exudates, or evidence of obstruction, uvula midline. Mucous membranes moist. Cardiovascular: Regular rate and rhythm with a normal S1 and S2. No gallops, murmurs, or rubs. Normal PMI, no JVD. No pulse deficits. Abdomen/GI: Soft, non-tender, with normal bowel sounds. No distension or tympany. No guarding or rebound. No evidence of tenderness throughout. Back: No spinal tenderness. No costovertebral tenderness. Full range of motion. Skin: Warm, dry with normal turgor. Normal color with no rashes, no lesions, and no evidence of cellulitis. Neuro: Awake and alert, GCS 15, oriented to person, place, time, and situation. Cranial nerves II-XII grossly intact. Motor strength 5/5 in all extremities. Sensory grossly intact. Cerebellar exam normal. Normal gait. Psych: Awake, alert, with orientation to person, place and time. Behavior, mood, and affect are within normal limits. 21:08 Musculoskeletal/extremity: Extremities: grossly normal except: noted in the left ankle and left foot: ROM: limited active range of motion due to pain, limited passive range of motion due to pain, in the left foot, Circulation is intact in all extremities. Sensation intact. edema to mid foot and lateral ankle. Vital Signs: 19:53 BP 131 / 66; Pulse 80; Resp 18 S; Temp 98.2(TE); Pulse Ox 95% on R/A; Weight 96.62 kg as6 (R); Height 5 ft. 7 in. (R); Pain 10/10; 19:53 Body Mass Index 33.36 (96.62 kg, 170.18 cm) as6 19:53 Pain Scale: Adult as6 MDM: 20:00 Patient medically screened. snw 21:04 Differential diagnosis: fracture, sprain. Data reviewed: vital signs, nurses notes, snw radiologic studies. I considered the following discharge prescriptions or medication management in the emergency department Medications were administered in the Emergency Department. See MAR. Independent interpretation of the following test(s) in the Emergency Department X-Ray: My interpretation is Neg foot and ankle film, Os trigonum?. Counseling: I had a detailed discussion with the patient and/or guardian regarding the historical points, exam findings, and any diagnostic results supporting the discharge/admit diagnosis, radiology results, the need for outpatient follow up, for definitive care, to return to the emergency department if symptoms worsen or persist or if there are any questions or concerns that arise at home. Special discussion: Based on the history and exam findings, there is no indication for further emergent testing or inpatient evaluation. I discussed with the patient/guardian the need to see the opthamologist for further evaluation of the symptoms, I discussed with the patient/guardian the need to see the primary care provider for further evaluation of the symptoms. 21:12 Response to treatment: the patient's symptoms have mildly improved after treatment. snw 11/05 20:01 Order name: Ankle Left 3 View XRAY; Complete Time: 20:40 11/05 20:05 Order name: Foot Left 3 View XRAY; Complete Time: 20:51 snw 11/05 20:40 Order name: Walking boot; Complete Time: 21:31 snw 11/05 21:08 Order name: Ice pack; Complete Time: 21:31 snw Administered Medications: 20:40 Drug: Ketorolac IM 30 mg Route: IM; Site: right deltoid; 21:31 Follow up: Response: No adverse reaction cm10 20:40 Not Given (Patient Refused): HYDROcodone-acetaminophen PO 5 mg-325 mg 1 tabs PO once kl Disposition Summary: 11/05/22 21:06 Discharge Ordered Location: Home snw Condition: Stable snw Diagnosis - Sprain of ankle snw - Sprain of foot snw Followup: snw - With: Emergency Department - When: As needed - Reason: Worsening of condition Followup: snw - With: Private Physician - When: 2 - 3 days - Reason: Recheck today's complaints, Continuance of care, Re-evaluation by your physician Discharge Instructions: - Discharge Summary Sheet snw - Ankle Sprain snw - Foot Sprain snw - RICE Therapy for Routine Care of Injuries snw - Walking Boot, Adult snw Forms: - Work release form snw - Medication Reconciliation Form snw - Thank You Letter snw - Antibiotic Education snw - Prescription Opioid Use snw - Patient Portal Instructions snw - Leadership Thank You Letter snw Prescriptions: - Mobic 7.5 mg Oral Tablet - take 1 tablet by ORAL route once daily take with food; 20 tablet; Refills: 0, snw Product Selection Permitted - Tramadol 50 mg Oral Tablet - take 1 tablet by ORAL route every 8 hours as needed; 12 tablet; Refills: 0, snw Product Selection Permitted Signatures: Dispatcher [employer] EDMS Emmy Brunson RN RN Tonya Frey, POST FRAMER-C POST FRAMER-[place] Cosme Rhodes RN RN as6 Maggy Kunz RN cm10 Corrections: (The following items were deleted from the chart) 19:58 19:57 PMHx: GERD; as6 as6 21:10 21:08 Musculoskeletal/extremity: Extremities: grossly normal except: noted in the left snw ankle and left foot: ROM: limited active range of motion due to pain, limited passive range of motion due to pain, in the left foot, Circulation is intact in all extremities. Sensation intact. snw
== END 2022-11-05 21:33 | disposition home or self-care (01) ==
LOC: ER 19:36
DX: S93.402A Sprain of unspecified ligament of left ankle, initial encounter (principal); S93.602A Unspecified sprain of left foot, initial encounter; F17.210 Nicotine dependence, cigarettes, uncomplicated
CPT/HCPCS: 96372; 99284